=== PATIENT | male | born 1955 | race Caucasian/White ===

== ENCOUNTER 2018-04-09 16:46 | Outpatient (CLI) | payer MEDICAID, SELFPAY ==
[2018-04-09 17:54] LABS: HCT 36.2 % (40.0-50.0); HGB 13.1 g/dL (13.5-17.5); Mean Corp. HGB Concentration 36.2 g/dL (32.0-36.0); Mean Corpuscular Hemoglobin 31.2 pg (27.0-33.0); Mean Corpuscular Volume 86.2 fL (80-95); Mean Platelet Volume 10.6 fL (8.0-11.0); Platelet Count 211 x1000/uL (130-400); RBC Distribution Width 12.6 % (11.8-14.1); White Blood Cell Count 13.85 k/cumm (4.4-10.8)
[2018-04-09 18:34] LABS: ALT 28 U/L (12-78); AST 28 U/L (15-37); Albumin 3.7 g/dL (3.4-5.0); Alkaline Phosphatase 105 U/L (46-116); Anion Gap 11.1 mmol/L (3-11); BUN 32 mg/dL (7-18); Bilirubin, Total 0.6 mg/dL (0.2-1.0); CO2 26.9 mmol/L (21.0-32.0); CREATININE 1.45 mg/dL (0.70-1.30); Calcium 8.8 mg/dL (8.5-10.1); Chloride 101 mmol/L (98-107); Estimated GFR 49.31 (mL/min/1.73m2); Glucose 77 mg/dL (70-100); Sodium 139 mmol/L (136-145); Total Protein 7.2 g/dL (6.4-8.2)
== END 2018-04-09 17:06 ==
PROVIDERS: PCP Internal Medicine; Visit Provider Internal Medicine
DX: K74.60 Unspecified cirrhosis of liver (principal); G89.29 Other chronic pain; I10 Essential (primary) hypertension
CPT/HCPCS: 36415; 80053; 85027

== ENCOUNTER 2018-07-11 16:00 | Outpatient (REF) | payer MEDICAID, SELFPAY ==
[2018-07-15 01:43] LABS: Buprenorphine 5.8 ng/mL
[2018-07-22 09:19] LABS: Codeine 171 ng/mL (Cutoff: 25); Dihydrocodeine Negative ng/mL (Cutoff: 25); Hydrocodone Negative ng/mL (Cutoff: 25); Hydromorphone 33 ng/mL (Cutoff: 25); Morphine 11955 ng/mL (Cutoff: 25); Naloxone Negative ng/mL (Cutoff: 25); Norhydrocodone Negative ng/mL (Cutoff: 25); Noroxycodone Negative ng/mL (Cutoff: 25); Noroxymorphone Negative ng/mL (Cutoff: 25); Opiates Interpretation Positive.
== END 2018-07-11 16:20 ==
LOC: NCHCN 16:00
PROVIDERS: PCP Internal Medicine; Visit Provider Nurse Practitioner Family
DX: F11.10 Opioid abuse, uncomplicated (principal)
CPT/HCPCS: 80307; 80361

== ENCOUNTER 2018-08-23 13:06 | Outpatient (REF) | payer MEDICAID, SELFPAY ==
[2018-08-23 21:17] LABS: *AMPHETAMINES SCREEN URINE Negative (Negative); *BARBITURATES SCREEN URINE Negative (Negative); *BENZODIAZEPINES SCREEN URINE Negative (Negative); Cannabinoids THC POSITIVE (Negative); Cocaine Screen,Urine POSITIVE (Negative); METHADONE URINE SCREEN Negative (Negative); OPIATES URINE SCREEN POSITIVE (Negative)
[2018-08-23 22:00] LABS: Tricyclic Antidepressants Negative (Negative)
== END 2018-08-23 13:26 ==
LOC: NCHCN 13:06
PROVIDERS: PCP Internal Medicine; Visit Provider Internal Medicine
DX: F11.10 Opioid abuse, uncomplicated (principal)
CPT/HCPCS: 80307

== ENCOUNTER 2019-01-09 09:16 | Emergency (ER) | payer SELFPAY ==
[2019-01-09] VITALS (18 sets, daily range): BP systolic 178–198; BP diastolic 78–100; PULSE 43–61; RESP 13–23; TEMP 36.7; O2SAT 98–100
[2019-01-09] MEDS: Aspirin 81 MG CHEW 324 MG CH (09:20)
--- NOTE | 2019-01-09 09:27 | W.ED.GENAD ---
Discharge Plan Disposition Patient Disposition: AGAINST MEDICAL ADVICE Condition: Stable Discharge Details Chief Complaint: Chest Pain Clinical Impression: Chest pain Primary Care Provider: Burt Nguyen ED Provider: Rodriguez Warren Home Meds and New Rx's Prescriptions: Continued Spiriva with HandiHaler 18 MCG capsule, w/inhalation device 1 ea Inhalation PRN PRNRF: 0 carvedilol 12.5 mg Tablet 12.5 mg PO BID RF: 0 spironolactone 50 mg Tablet 50 mg PO QAM RF: 0 buprenorphine-naloxone [Suboxone] 2-0.5 mg Film 1 film BUCCAL BID RF: 0 ibuprofen 600 MG tablet 600 mg PO DAILY Qty: 20 RF: 0 Discharge Instructions Additional Instructions: follow up with your primary care provider within one week if you change your mind and are willing to have additional labs and ekg you can always return and if your pain worsens or you have worsening shortness of breath return to the emergency department Medical Decision Making 63 yo male with hx of htn, opiate abuse who uses IV heroin last use was a week ago per patient who comes in with chest pain radiating to the back since yesterday at 11am. States the pain is radiating to the back and abdomen and has never had this happen before. he has pain when I push on the anterior chest with clear lungs, soft non distended abodmen. his heart score is 3, will send troponin. His story is concerning for dissection so feel he should have a stat CTA to eval for this. He has no significant hypoxia or evidence of DVT on exam so doubt PE pt remains stable only has pain when I push on the chest. HIs CTA is negative on my read and per Dr. vale no acute findings. Initial labs reassuring. I strongly recommended that the patient stay for repeat troponin and ecg but he declined and wants to leave. He has the capacity to make his own decisions and is not under the influence of any drugs or alcohool. he understands risks of leaving including and disability and is willing to take these risks. He understands he can return at any time if he cahnges his mind and will f/u with pcp. Differential Diagnosis acs, dissection, pe Medical Records Medical records reviewed: Yes I reviewed the patient's medical records. Imaging Data Radiologic Study: Attestation: I personally reviewed and interpreted this imaging study as follows: Imaging: CT Scan Radiologist's impression: he aorta is well opacified with IV contrast. There is no evidence of aortic dissection or aneurysm. Atherosclerotic changes are seen in the abdominal aorta and iliac arteries. There is mild luminal narrowing. The celiac, SMA and CELINE appear patent. The renal arteries are also patent. No pleural or pericardial effusions are seen. There is left upper lobe scarring as well as mild underlying emphysematous changes bilaterally. The liver again has a cirrhotic appearance. The patent appears to be status post cholecystectomy. The spleen is absent. The pancreas and adrenals are unremarkable. The kidneys show symmetric perfusion. The prostate is slightly enlarged, The bladder is unremarkable. No bowel dilatation or wall thickening is seen. There is no ascites, free air or free fluid. Scoliosis is noted in the thoracolumbar spine. There is no evidence of fracture. IMPRESSION: No evidence of aortic dissection or other acute abnormality. There is left apical scarring as well as underlying emphysematous changes. Lab Data Lab results reviewed: Yes I reviewed the patient's lab results. ECG Data Attestation: I personally reviewed and interpreted this ECG (s) as follows: Prior ECG tracings: available for review Interpretation: sinus rhythm, rate of 60, pr 172, qtc 442, no acute st t wave ischmemic changes compared to ekg from 08/2016 [facility] General Mode of arrival: ambulatory. Date/Time Provider Initiated Documentation: 01/09/19 09:16. Limitations to Documentation: no limitations. Information obtained by: patient. History of Present Illness 63 year old M presents to the emergency department with the chief complaint of chest pain, described as moderate, Quality is described as aching, and is localized to the chest. Patient reports no radiation. Patient started experiencing this day(s) (1) and it has been constant. No relieving factors improve symptom(s), No exacerbating factors reported . Patient notes no other symptoms.. Patient did receive the following treatments prior to arrival, none Related Data Home Medications Medication Instructions Recorded Confirmed Spiriva with HandiHaler 1 ea INHALATION PRN PRN 01/21/14 01/09/19 ibuprofen 600 mg PO DAILY #20 tab 10/09/17 01/09/19 buprenorphine-naloxone [Suboxone] 1 film BUCCAL BID 01/09/19 01/09/19 carvedilol 12.5 mg PO BID 01/09/19 01/09/19 spironolactone 50 mg PO QAM 01/09/19 01/09/19 Previous Rx's Medication Instructions Recorded ibuprofen 600 mg PO DAILY #20 tab 10/09/17 Allergies Allergy/AdvReac Type Severity Reaction Status Date / Time methadone [Methadone] Allergy Intermediate Rash/Swelli Unverified 01/09/19 10:00 ng/Edema Review of Systems Review of Systems All systems reviewed & are unremarkable except as noted in HPI and below Constitutional Denies chills, Denies fever(s) and Denies weakness Gastrointestinal Denies abdominal pain, Denies nausea and Denies vomiting Musculoskeletal Denies joint swelling Neurologic Denies weakness Psychiatric Denies depression PFSH Social History Smoking/Tobacco Use Status: Current every day Tobacco Type: cigarettes Smoking cigarettes per day: 10 Alcohol Intake: current Alcohol Intake frequency: a few times a month Alcohol type: beer Drug use: Occasionally Substance use type: marijuana, crack/cocaine and heroin Do you feel safe at home: Yes Do you feel safe in your relationship?: Yes Exam Const General: no acute distress Orientation: alert HENMT Head: normal to inspection Ears: external ears normal General nose exam: external nose normal Mouth: moist mucous membranes Eyes General: appearance normal, both eyes and all related structures Neck Neck: normal visual inspection Resp Effort & Inspection: normal respiratory effort and able to speak in complete sentences Cardio Rate: regular rate Skin General skin exam: no rashes or lesions noted Neuro General: alert and oriented x3 Extrem General: normal to inspection Psych Mental Status: mental status grossly normal
[2019-01-09 09:47] LABS: Abs Immature Grans 0.03 k/cumm (0.0-0.09); Absolute Basophil Count 0.02 k/cumm (0.0-0.2); Absolute Eosinophil Count 0.06 k/cumm (0.0-0.7); Absolute Lymphocyte Count 1.84 k/cumm (1.2-3.4); Absolute Monocyte Count 1.06 k/cumm (0.11-0.7); Absolute Neutrophil Count 5.63 k/cumm (1.2-6.7); Basophils % 0.2; Eosinophils % 0.7; HCT 37.9 % (40.0-50.0); HGB 13.9 g/dL (13.5-17.5); Immature Grans % 0.3; Lymphocytes % 21.3; Mean Corp. HGB Concentration 36.7 g/dL (32.0-36.0); Mean Corpuscular Volume 87.1 fL (80-95); Mean Platelet Volume 9.8 fL (8.0-11.0); Monocytes % 12.3; Neutrophils % 65.2; Platelet Count 292 x1000/uL (130-400); RBC 4.35 m/cumm (4.50-6.00); RBC Distribution Width 12.4 % (11.8-14.1); White Blood Cell Count 8.64 k/cumm (4.4-10.8)
[2019-01-09 10:05] LABS: ALT 30 U/L (16-63); AST 28 U/L (15-37); Albumin 3.9 g/dL (3.4-5.0); Alkaline Phosphatase 96 U/L (46-116); Anion Gap 9.7 mmol/L (3-11); BUN 13 mg/dL (7-18); Bilirubin, Total 0.9 mg/dL (0.2-1.0); CO2 28.3 mmol/L (21.0-32.0); CREATININE 1.11 mg/dL (0.70-1.30); Chloride 106 mmol/L (98-107); Glucose 122 mg/dL (70-100); Lipase 200 U/L (73-393); Magnesium 1.8 mg/dL (1.8-2.4); Potassium 4.1 mmol/L (3.5-5.1); Sodium 144 mmol/L (136-145)
[2019-01-09] MEDS: Normal Saline Flush 10 ML SYR IVP ×2 (10:05→11:47)
[2019-01-09 10:08] LABS: INR 1.1 (0.9-1.1); PTT Activated 26.1 sec (21.0-31.4); Prothrombin Time 10.6 sec (9.3-11.0); Troponin I < 0.05 ng/mL (0.00-0.06)
[2019-01-09] MEDS: Omnipaque 350 MG/ML 100 ML BTL IJ (10:38)
--- NOTE | 2019-01-09 10:40 | DI.CT_ITS ---
SYMPTOMS/DIAGNOSIS: CHEST PAIN RADIATING TO BACK/ABDOMEN CT ANGIOGRAPHY OF THE CHEST, ABDOMEN AND PELVIS: CT angiography was performed with multi slice acquisition and multi planar and 3D reconstruction. The aorta is well opacified with IV contrast. There is no evidence of aortic dissection or aneurysm. Atherosclerotic changes are seen in the abdominal aorta and iliac arteries. There is mild luminal narrowing. The celiac, SMA and CELINE appear patent. The renal arteries are also patent. No pleural or pericardial effusions are seen. There is left upper lobe scarring as well as mild underlying emphysematous changes bilaterally. The liver again has a cirrhotic appearance. The patent appears to be status post cholecystectomy. The spleen is absent. The pancreas and adrenals are unremarkable. The kidneys show symmetric perfusion. The prostate is slightly enlarged, The bladder is unremarkable. No bowel dilatation or wall thickening is seen. There is no ascites, free air or free fluid. Scoliosis is noted in the thoracolumbar spine. There is no evidence of fracture. IMPRESSION: No evidence of aortic dissection or other acute abnormality. There is left apical scarring as well as underlying emphysematous changes.
[2019-01-09] MEDS: Ketorolac 15 MG/ML VIAL IVP (11:47)
== END 2019-01-09 12:03 | disposition left against medical advice (07) ==
PROVIDERS: Emergency Provider Emergency Medicine; PCP Internal Medicine
DX: R07.9 Chest pain, unspecified (principal); F11.10 Opioid abuse, uncomplicated; I10 Essential (primary) hypertension; Z53.29 Procedure and treatment not carried out because of patient's decision for other reasons
CPT/HCPCS: 36415; 74177; 80053; 83690; 93005; 99285; 83735; 84484; 85025; 85610; 85730; 93010; 99284; J1885; J3490

== ENCOUNTER 2019-04-26 11:37 | Emergency (ER) | payer MEDICAID, SELFPAY ==
[2019-04-26 11:42] VITALS: BP 177/113; PULSE 74; RESP 16; TEMP 36.8; O2SAT 99
--- NOTE | 2019-04-26 11:50 | DI.RAD_ITS ---
EXAM: XR CHEST 2V PA LATERAL CLINICAL HISTORY: cough TECHNIQUE: COMPARISON: CHEST 2 VIEWS PA,LAT from 05/10/2016 CHEST 2 VIEWS PA,LAT from 10/09/2017 FINDINGS: The heart is not enlarged. Left upper lobe scarring again noted, no gross change appearance comparis on examination October 25. Lungs otherwise appear clear. No pleural effusion. IMPRESSION: No evidence of acute intrapulmonary process.
--- NOTE | 2019-04-26 11:57 | ED.GENADUL_ITS ---
Discharge Plan Discharge Details Chief Complaint: RespSymp Primary Care Provider: Burt Nguyen ED Provider: Venu Toure Home Meds and New Rx's Prescriptions: No Action Spiriva with HandiHaler 18 MCG capsule, w/inhalation device 1 ea Inhalation PRN PRNRF: 0 carvedilol 12.5 mg Tablet 12.5 mg PO BID RF: 0 spironolactone 50 mg Tablet 50 mg PO QAM RF: 0 buprenorphine-naloxone [Suboxone] 2-0.5 mg Film 1 film BUCCAL BID RF: 0 ibuprofen 600 MG tablet 600 mg PO DAILY Qty: 20 RF: 0 Medical Decision Making 63-year-old male with clinical signs of atypical pneumonia chest x-ray question of a mild left upper lobe infiltrate consistent with lung exam patient some risk factors for tuberculosis age and chronicity of complaint lead me to recommend ECG basic lab work and TB screening patient says he has a long drive ahead of him today and cannot wait for any further testing just wanted to be assessed for a chest x-ray. Explained importance of early follow-up and the risks and benefits and chance of missed diagnosis morbidity and mortality of not completi ng his ED work-up today. Patient understands but refused and prefers discharge at this time but will return anytime should his condition worsen or if he changes his mind. While more expeditious today in the emergency department I think his work-up is also appropriate on an outpatient basis 12:04 PM radiology reading left lower lobe findings as chronic scarring similar to previous however with symptoms and lung exam will still cover with azithromycin for presumed pneumonia patient to follow-up with primary care this week for further work-up as discussed above. HPI 63-year-old male past medical history COPD, hypertension IV drug abuse last use 8 months ago previously on Suboxone but now abstinent, daily smoker x30 years presents with approximately 3 weeks cough intermittent fever chills malaise. No chest pain no nausea vomiting diarrhea loss of consciousness. Cough and congestion are constant worse in the morning occasionally the cough is pro ductive clearing green sputum no known sick contacts no recent incarceration. Patient last TB test 3 years ago was negative. No abdominal pain. General Date/Time Provider Initiated Documentation: 04/26/19 11:46 . Related Data Home Medications Medication Instructions Recorded Confirmed Spiriva with HandiHaler 1 ea INHALATION PRN PRN 01/21/14 04/26/19 ibuprofen 600 mg PO DAILY #20 tab 10/09/17 04/26/19 buprenorphine-naloxone [Suboxone] 1 film BUCCAL BID 01/09/19 01/09/19 carvedilol 12.5 mg PO BID 01/09/19 04/26/19 spironolactone 50 mg PO QAM 01/09/19 01/09/19 Previous Rx's Medication Instructions Recorded ibuprofen 600 mg PO DAILY #20 tab 10/09/17 Allergies Allergy/AdvReac Type Severity Reaction Status Date / Time methadone [Methadone] Allergy Intermediate Rash/Swelli Unverified 04/26/19 11:45 ng/Edema General Stated Complaint: RespSymp HEATHER: 4 Review of Systems All systems reviewed & are unremarkable except as noted in HPI and below PFSH Social History Smoking/Tobacco Use Status: Current every day Tobacco Type: cigarettes Alcohol Intake: current Alcohol Intake frequency: a few times a month Alcohol type: beer Drug use: Occasionally Substance use type: marijuana, crack/cocaine and heroin Do you feel safe at home: Yes Do you feel safe in your relationship?: Yes Exam Narrative Exam Narrative: Pulse oximetry reviewed by me and is normal [] Constitutional: Pt is in no acute distress. pt is well appearing. oriented to person, place, and time. Eyes: conjunctivae are normal. Pupils are equal, round, and reactive to light. No scleral icterus. extraocular muscles are intact Ears/Nose/Mouth/Throat: mucus membranes are moist. Musculoskeletal: neck is supple. normal range of motion in all extremities. Cardiovascular: Normal rate and rhythm. No lower extremity edema [] Respiratory: effort is normal . pt exhibits no stridor or respiratory distress. Lungs clear bilaterally except mild upper airway rhonchi and some rales in the left upper lobe [] GastrointestinaI: abdomen soft, +BS, nontender, -rebound, -guarding. Neurological: alert and oriented to person, place, and time. he has normal strength, no tremor. Skin: Skin is warm and dry. he is not diaphoretic. Distal perfusion in tact, warm extremities, cap refill ? 2 seconds. Hem/Lymph/Imm: No cervical LAD, no goiter, no conjunctival pallor Psych: normal mood and affect. behavior is normal Triage and nurse notes reviewed.[] Course Vital Signs Vital signs: Vital Signs Temperature 36.8 C 04/26/19 11:42 Pulse 74 04/26/19 11:42 Respiratory Rate 16 04/26/19 11:42 Blood Pressure 177/113 H 04/26/19 11:42 Pulse Oximetry 99 04/26/19 11:42 Temperature 36.8 C 04/26/19 11:42 Temperature Source Temporal Artery Scan 04/26/19 11:42 Pulse 74 04/26/19 11:42 Respiratory Rate 16 04/26/19 11:42 Respiratory Effort Non-Labored 04/26/19 11:44 Respiratory Depth Normal 04/26/19 11:44 Blood Pressure 177/113 H 04/26/19 11:42 Blood Pressure Position Sitting 04/26/19 11:42 Pulse Oximetry 99 04/26/19 11:42 Oxygen Delivery Method Room Air 04/26/19 11:42 Oxygen Flow Rate 0 04/26/19 11:42 Pain Level 0 04/26/19 11:42
== END 2019-04-26 12:24 | disposition home or self-care (01) ==
LOC: ER 12:23
PROVIDERS: Emergency Provider Emergency Medicine; PCP Internal Medicine
DX: J44.0 Chronic obstructive pulmonary disease with (acute) lower respiratory infection (principal); J18.9 Pneumonia, unspecified organism; F17.210 Nicotine dependence, cigarettes, uncomplicated; I10 Essential (primary) hypertension; Z53.29 Procedure and treatment not carried out because of patient's decision for other reasons
CPT/HCPCS: 99283; 71046; 99284

== ENCOUNTER 2019-08-25 10:19 | Emergency (ER) | payer MEDICAID, SELFPAY ==
[2019-08-25 10:20] VITALS: BP 125/63; PULSE 75; RESP 16; TEMP 36.6; O2SAT 100
--- NOTE | 2019-08-25 10:28 | ED.GENADUL_ITS ---
Discharge Plan Disposition Patient Disposition: AGAINST MEDICAL ADVICE Condition: Fair Discharge Details Chief Complaint: AMS/LOC Clinical Impression: Opiate overdose Primary Care Provider: Burt Nguyen ED Provider: Nanci Levine Home Meds and New Rx's Prescriptions: No Action Spiriva with HandiHaler 18 MCG capsule, w/inhalation device 1 ea Inhalation PRN PRNRF: 0 carvedilol 12.5 mg Tablet 12.5 mg PO BID RF: 0 spironolactone 50 mg Tablet 50 mg PO QAM RF: 0 azithromycin 250 mg tablet See Rx Instructions .ROUTE .COMPLEX Qty: 6 RF: 0 ibuprofen 600 MG tablet 600 mg PO DAILY Qty: 20 RF: 0 Discharge Instructions Instructions: Adult Overdose (ED), Opioid Use Disorder (ED) Additional Instructions: Follow up with primary care provider in 3-5 days. Return to ED sooner if any worsening or concerns. Increase oral fluids. Patient requesting to leave AMA. The patient appears clinically sober and is not under the influence of any known substances. Discussed risks and benefits with patient. Patient verbalizes understanding of situation and the risks of leaving.Discussed results of labs and imaging, if they were performed and recommendations for further treatment and/or observation. The patient verbalizes understanding of the results discussed. Every effort was made to involve family if appropriate and situation discussed. At this time patient has opted to leave against medical advice. Patient is alert and oriented and has the capacity to make own decisions. Medical Decision Making 1020: Patient presents to the ED via POV unresponsive after injecting heroin to his hand. He is agonal he breathing with a rate of 5 a minute. O2 sat is 67% on room air. Patient was brought into the ED placed on a monitor BGL 116, placed on a nonrebreather sat brought up to 94%. Normal sinus rhythm no ectopy no ST elevation noted. 1028: After a total of 8 mg of Narcan nasally patient is awake alert x3. He is requesting to leave. Discussed risks and benefits discussed that if the Narcan wears off he will stop breathing again patient understands the risks and verbalizes understanding. He is able to answer questions on name date patient is refusing any additional IV starts. Patient will leave AMA. Patient ambulated out of the department with steady gait unassisted. Patient requesting to leave AMA. The patient appears clinically sober and is not under the influence of any known substances. Discussed risks and benefits with patient. Patient verbalizes understanding of situation and the risks of leaving.Discussed results of labs and imaging, if they were performed and recommendations for further treatment and/or observation. The patient verbalizes understanding of the results discussed. Every effort was made to involve family if appropriate and situation discussed. At this time patient has opted to leave against medical advice. Patient is alert and oriented and has the capacity to make own decisions. HPI General Mode of arrival: wheelchair (stretcher) . Date/Time Provider Initiated Documentation: 08/25/19 10:22 . Limitations to Documentation: altered mental status . Information obtained by: family (friends) . HPI Narrative: 64-year-old male presents via POV front of the ER with a plaint of unresponsive heroin overdose. Friends state that he shot up in his left hand became unresponsive. Patient remained approximately 5 breaths/min pale unresponsive, pinpoint pupils. Does have a fresh track nascimento noted to the dorsum of his left hand. Patient brought into the department on a stretcher, was given 4 mg Narcan nasally outside. And another dose 4 mg in the ED. Patient initially was O2 sat of 67% room air. Related Data Home Medications Medication Instructions Recorded Confirmed Spiriva with HandiHaler 1 ea INHALATION PRN PRN 01/21/14 04/26/19 ibuprofen 600 mg PO DAILY #20 tab 10/09/17 04/26/19 carvedilol 12.5 mg PO BID 01/09/19 04/26/19 spironolactone 50 mg PO QAM 01/09/19 01/09/19 azithromycin See Rx Instructions .ROUTE 04/26/19 .COMPLEX #6 tab Previous Rx's Medication Instructions Recorded ibuprofen 600 mg PO DAILY #20 tab 10/09/17 azithromycin See Rx Instructions .ROUTE 04/26/19 .COMPLEX #6 tab Allergies Allergy/AdvReac Type Severity Reaction Status Date / Time methadone [Methadone] Allergy Intermediate Rash/Swelli Unverified 04/26/19 11:45 ng/Edema General Stated Complaint: AMS/LOC HEATHER: 2 Review of Systems Unobtainable due to mental status [facility] Social History Smoking/Tobacco Use Status: Current every day Tobacco Type: cigarettes Alcohol Intake: current Alcohol Intake frequency: a few times a month Alcohol type: beer Drug use: Occasionally Substance use type: marijuana, crack/cocaine and heroin Do you feel safe at home: Yes Do you feel safe in your relationship?: Yes Exam Const General: intoxicated appearing Nutritional Appearance: average body habitus Orientation: obtunded Limitations: altered mental status Other: Pinpoint pupils agonal breathing 5 times a minute. Resp Effort & Inspection: decreased respiratory effort Cardio Rate: regular rate Heart Sounds: S1 normal and S2 normal Skin General skin exam: no rashes or lesions noted and pallor Trauma: no lacerations or abrasions Neuro General: patient obtunded Cognition: abnormal cognition Gait: other (Steady gait without assistance upon discharge.) Psych Thought Content: no homicidality and suicidality Insight: poor Judgment: poor Course Vital Signs Vital signs: Vital Signs Temperature 36.6 C 08/25/19 10:20 Pulse 75 08/25/19 10:20 Respiratory Rate 16 08/25/19 10:20 Blood Pressure 125/63 08/25/19 10:20 Pulse Oximetry 100 08/25/19 10:20 Temperature 36.6 C 08/25/19 10:20 Temperature Source Tympanic 08/25/19 10:20 Pulse 75 08/25/19 10:20 Respiratory Rate 16 08/25/19 10:20 Respiratory Effort 08/25/19 10:22 Blood Pressure 125/63 08/25/19 10:20 Blood Pressure Position Sitting 08/25/19 10:20 Pulse Oximetry 100 08/25/19 10:20 Oxygen Delivery Method Nasal Cannula 08/25/19 10:20 Pain Level 0 08/25/19 10:20
--- NOTE | 2019-08-25 10:36 | NUR.NOTE ---
Nursing Note: Unable to perform assessment. PT unwilling to cooperated with hospital staff. PT refused medical treatment once alert and oriented. PT left AMA, MD Ford at bedside during AMA discussion.
--- NOTE | 2019-08-25 10:38 | NUR.NOTE ---
Nursing Note: PT dropped off at ED entrance by friend. Friend reports the patient suddenly became unresponsive after using heroin. Upon arrival Pt was supine on the sidewalk unresponsive. 4mg Narcan sprayed intranasal. PT lifted to stretched and transported to ED RM 2. PT placed on heart monitor to obtain vitals. Vitals stable. IV access attempted three times, all unsuccessful. BGL 113. Second 4mg Narcan intranasal administered. Shortly after administration, PT became arousable and at 10:30 was alert and oriented times 3. Once alert Pt became uncooperative and refused all treatment and interventions. PT warned of the risks involved with refusing medical care after a drug overdose. PT informed that the Narcan may wear off and he could become unconscious. PT warned of possible associated with refusing medical care after drug over dose. MD Ford at bedside enplaning risks involved to Pt prior to his departure from the ED. PT left AMA, unwilling to wait for appropriate transportation.
== END 2019-08-25 10:33 | disposition left against medical advice (07) ==
LOC: ER 10:53
PROVIDERS: Emergency Provider Registered Nurse Emergency; PCP Internal Medicine
DX: T40.1X1A Poisoning by heroin, accidental (unintentional), initial encounter (principal); Z53.29 Procedure and treatment not carried out because of patient's decision for other reasons
CPT/HCPCS: 36416; 80053; 82962; 99283; 83735; 84484; 85025

== ENCOUNTER 2019-11-01 06:10 | Emergency (ER) | payer MEDICAID, SELFPAY ==
[2019-11-01] VITALS (25 sets, daily range): BP systolic 133–176; BP diastolic 78–93; PULSE 54–76; RESP 10–25; TEMP 36.5–36.8; O2SAT 95–100
--- NOTE | 2019-11-01 06:27 | ED.GENADUL_ITS ---
Discharge Plan Disposition Patient Disposition: HOME Condition: Stable Discharge Details Chief Complaint: Chest Pain Clinical Impression: COPD exacerbation Primary Care Provider: Burt Nguyen ED Provider: Rich Sandra Home Meds and New Rx's Prescriptions: New prednisone 50 MG tablet 50 mg PO DAILY Qty: 5 RF: 0 albuterol sulfate 90 mcg/actuation HFA aerosol inhaler 2 puff IH Q6H PRNQty: 6.7 RF: 0 Continued Spiriva with HandiHaler 18 MCG capsule, w/inhalation device 1 ea Inhalation PRN PRNRF: 0 carvedilol 12.5 mg Tablet 12.5 mg PO BID RF: 0 spironolactone 50 mg Tablet 50 mg PO QAM RF: 0 azithromycin 250 mg tablet See Rx Instructions .ROUTE .COMPLEX Qty: 6 RF: 0 ibuprofen 600 MG tablet 600 mg PO DAILY PRNRF: 0 Discharge Instructions Instructions: COPD (Chronic Obstructive Pulmonary Disease) (ED) Additional Instructions: It is not my recommendation that you leave without the labs that we did order. In the meantime please take the prednisone steroid as directed. Please take 2 puffs every 4-6 hours of your albuterol inhaler with your spacer. If you notice any worsening of your symptoms, or any new symptoms such as vomiting, diarrhea, fever, chills, shortness of breath, chest pain, numbness, weakness, or fainting , please return immediately to the emergency department for reevaluation. Please follow up with your primary care provider as soon as possible for reassessment and reevaluation. As always, it was a pleasure participating in your medical care today. Referrals: Burt Nguyen MD [Primary Care Provider] - Medical Decision Making <Fernando Alicea MD - Last Filed: 11/01/19 07:46> Medical Records Medical records reviewed: Yes I reviewed the patient's medical records. 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 Symptoms worse over the last couple of days. No fever. No travel or exposure to COVID. Does not have rescue inhaler at home. Do not suspect COVID given his timeline. Suspect COPD exacerbation triggered by paint fumes. His EKG is normal. Will place IV and check labs including troponin. Chest x-ray ordered. Will place in negative pressure room and give DuoNeb treatment to see if it helps his symptoms. 07:45 -patient former IV drug abuser. Normal axis in his arms. Nursing able to get EJ. CBC looks stable. Other labs not run due to QA issues by lab. Chest x-ray read by radiology as stable. Patient refusing to let anyone redraw his labs. Will give DuoNeb and reevaluate. Patient to be signed over to oncoming physician Dr. Sandra. ECG Data Attestation: I personally reviewed and interpreted this ECG (s) as follows: Prior ECG tracings: not available for review Interpretation: Sinus rhythm at 72. Normal axis and intervals. Normal ST segments. <Rich Sandra, DO - Last Filed: 11/01/19 09:20> Patient was signed out to my self by my colleague Dr. Fernando Alicea, please see his HPI, physical exam and assessment. At time of signout patient had refused additional lab draws for requested labs. EKG was unremarkable. Chest x-ray is unremarkable. The patient was given a breathing treatment which he had complete resolution of his symptoms from. After prolonged discussion with both Dr. Alicea myself, the patient it very clear that he like to leave, does not feel he needs any additional blood work, feels fine. The patient is able to speak clearly. There is no demonstration of any slurring of speech. There is evidence of clear decision making capacity. Patient is able to ambulate well without any difficulty. There are no signs of ataxia or stumbling motions. Patient is of a appropriate age to make decisions. The patient is of sound mind, appears clinically sober, and has capacity to make decisions by my clinical exam. We have provided options for treatment and discussed the risks and benefits of these options and refusing these options, including and disability specific to the patient's pathology. Patient is able to discuss the risks and benefits and alternatives of treatment and refusing treatment. We have tried to involve the patient's family or support group that was present here or by contacting them on the phone. The patient chooses to leave before evaluation and treatment is complete AGAINST MEDICAL ADVICE. I will give the patient an albuterol inhaler and a spacer to go home with, in addition to a 5-day course of steroid. Reassessment upon time of discharge the patient is notably unremarkable I have extensively reviewed the treatment plan and discharge instructions with the patient. I have addressed all patient concerns at this time. The patient was made aware of what symptoms to monitor for that would warrant a return to the emergency department. Discussed the plan with the patient, they demonstrate verbal understanding and agreement with our assessment and plan at this time. HPI <Fernando Alicea MD - Last Filed: 11/01/19 07:46> General Mode of arrival: ambulatory . Date/Time Provider Initiated Documentation: 11/01/19 06:26 . Limitations to Documentation: no limitations . Information obtained by: patient, RN notes reviewed and old records reviewed . HPI Narrative: Patient presents to the ED with complaint of substernal discomfort, mild shortness of breath, mild cough. 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 They do not have mask/respirators TMs. That actually all needed to stop current effusions. He has had symptoms for 2 days since then. He does have a history of COPD. He does not have a rescue inhaler only his Spiriva. He has a little bit of a sore throat but denies fever, headache. He has no nausea or vomiting or other GI symptoms. Denies any leg pain or leg swelling. Pain is not pleuritic. It has been getting worse over time prompting him to come in this morning. Related Data Home Medications Medication Instructions Recorded Confirmed Spiriva with HandiHaler 1 ea INHALATION PRN PRN 01/21/14 11/01/19 carvedilol 12.5 mg PO BID 01/09/19 11/01/19 spironolactone 50 mg PO QAM 01/09/19 11/01/19 azithromycin See Rx Instructions .ROUTE 04/26/19 .COMPLEX #6 tab albuterol sulfate 2 puff IH Q6H PRN #6.7 gm 11/01/19 ibuprofen 600 mg PO DAILY PRN 11/01/19 11/01/19 prednisone 50 mg PO DAILY #5 tab 11/01/19 Previous Rx's Medication Instructions Recorded azithromycin See Rx Instructions .ROUTE 04/26/19 .COMPLEX #6 tab albuterol sulfate 2 puff IH Q6H PRN #6.7 gm 11/01/19 prednisone 50 mg PO DAILY #5 tab 11/01/19 Allergies Allergy/AdvReac Type Severity Reaction Status Date / Time methadone [Methadone] Allergy Intermediate Rash/Swelli Unverified 06/26/20 06:21 ng/Edema General Stated Complaint: Chest Pain HEATHER: 3 Review of Systems <Fernando Alicea MD - Last Filed: 11/01/19 07:46> Narrative: As documented in HPI otherwise negative as below. Const: no fever, chills, weakness Resp: no pleuritic pain CV: no diaphoresis, edema, syncope GI: no abdominal pain, nausea, vomiting, diarrhea Neuro: no headache, numbness, focal weakness, confusion PFSH <Fernando Alicea MD - Last Filed: 11/01/19 07:46> Medical History (Updated 11/01/19 @ 09:08 by Rich Sandra DO) COPD (chronic obstructive pulmonary disease) (Chronic) Hepatitis C (Chronic) treated with interferon as a child; states it is now resolved Hypertension (Chronic) Surgical History History of appendectomy (Chronic) History of cholecystectomy (Chronic) History of splenectomy (Acute) Social History Smoking/Tobacco Use Status: Current every day Tobacco Type: cigarettes Alcohol Intake: current Alcohol Intake frequency: a few times a month Alcohol type: beer Drug use: Occasionally Substance use type: marijuana Details: no longer uses heroin or cocaine (months) Do you feel safe at home: Yes Do you feel safe in your relationship?: Yes Exam <Fernando Alicea MD - Last Filed: 11/01/19 07:46> Narrative Exam Narrative: Vitals: Afebrile. Hypertensive. Otherwise normal vitals and normal room air pulse ox. Const: WDWN male in NAD. HEENT: NC/AT. Normal facial exam. Mild posterior oropharyngeal erythema. Eyes: Normal conjunctiva and sclera. Neck: Supple. Trachea midline. Lungs: Normal respiratory effort. Lungs are clear. No chest wall tenderness Cor: RRR without murmur/gallop. Good radial pulses. GI: Soft. NT/ND. No guarding or rebound. Neuro: A+O x 3. Normal speech, mentation, gait. Cranial nerves II - XII grossly intact. No gross motor or sensory deficit. Ext: No C/C/E. No calf tenderness Skin: Warm and dry without rash. Course <Fernando Alicea MD - Last Filed: 11/01/19 07:46> Vital Signs Vital signs: Vital Signs Temperature 97.7 F 11/01/19 06:15 Pulse 73 11/01/19 06:15 Respiratory Rate 16 11/01/19 06:15 Blood Pressure 173/85 H 11/01/19 06:15 Pulse Oximetry 98 11/01/19 06:15 Temperature 97.7 F 11/01/19 06:15 Temperature Source Skin 11/01/19 06:15 Pulse 73 11/01/19 06:15 Respiratory Rate 16 11/01/19 06:15 Respiratory Effort 11/01/19 06:21 Respiratory Depth Normal 11/01/19 06:21 Respiratory Pattern Normal 11/01/19 06:21 Blood Pressure 173/85 H 11/01/19 06:15 Pulse Oximetry 98 11/01/19 06:15 Pain Level 5 11/01/19 06:15 Sign Out <Fernando Alicea MD - Last Filed: 11/01/19 07:46> Sign Out Data: Sign Out Comment: Pending neb treatment and reevaluation. Refusing redraw on labs. Last updated by Fernando Alicea MD at 11/01/19 07:47
[2019-11-01 07:06] LABS: Abs Immature Grans 0.04 k/cumm (0.0-0.09); Absolute Basophil Count 0.09 k/cumm (0.0-0.2); Absolute Eosinophil Count 0.43 k/cumm (0.0-0.7); Absolute Lymphocyte Count 2.28 k/cumm (1.2-3.4); Absolute Monocyte Count 1.12 k/cumm (0.11-0.7); Absolute Neutrophil Count 4.16 k/cumm (1.2-6.7); Basophils % 1.1; Eosinophils % 5.3; HCT 35.3 % (40.0-50.0); HGB 12.7 g/dL (13.5-17.5); Immature Grans % 0.5 %; Lymphocytes % 28.1; Mean Corpuscular Hemoglobin 32.3 pg (27.0-33.0); Mean Corpuscular Volume 89.8 fL (80-95); Monocytes % 13.8; Neutrophils % 51.2; Platelet Count 243 x1000/uL (130-400); RBC 3.93 m/cumm (4.50-6.00); RBC Distribution Width 12.7 % (11.8-14.1); White Blood Cell Count 8.12 k/cumm (4.4-10.8)
--- NOTE | 2019-11-01 07:15 | DI.RAD_ITS ---
EXAM: XR CHEST 2V PA LATERAL CLINICAL HISTORY: CP/SOB TECHNIQUE: COMPARISON: CR CHEST 2 VIEWS PA,LAT from 09/02/2015 CR CHEST 2 VIEWS PA,LAT from 05/10/2016 CR CHEST 2 VIEWS PA,LAT from 10/09/2017 CR XR CHEST 2V PA LATERAL from 04/26/2019 FINDINGS: Heart is not enlarged. Lungs are predominantly clear with left upper lobe scarring unchanged from pr ior studies including October 2017. No pleural effusion seen. IMPRESSION: Apparent left upper lobe scarring. No evidence of acute change.
[2019-11-01] MEDS: Albuterol/Ipratropium 3 ML UPD VIAL UPD (07:38)
== END 2019-11-01 09:12 | disposition home or self-care (01) ==
PROVIDERS: Emergency Medicine; Emergency Provider Student in an Organized Health Care Education/Training Program; PCP Internal Medicine
DX: J44.1 Chronic obstructive pulmonary disease with (acute) exacerbation (principal); T65.6X1A Toxic effect of paints and dyes, not elsewhere classified, accidental (unintentional), initial encounter; Z53.29 Procedure and treatment not carried out because of patient's decision for other reasons; I10 Essential (primary) hypertension; F17.210 Nicotine dependence, cigarettes, uncomplicated
CPT/HCPCS: 80053; 93005; 94640; 99285; 36010; 71046; 83735; 84484; 85025; 85379; 93010; 99284; J7620

== ENCOUNTER 2020-02-26 15:30 | Emergency (ER) | payer MEDICAID, SELFPAY ==
[2020-02-26] VITALS (12 sets, daily range): BP systolic 132–165; BP diastolic 73–91; PULSE 71–90; RESP 14–27; TEMP 35.9–37.1; O2SAT 96–99
--- NOTE | 2020-02-26 15:45 | DI.CT_ITS ---
EXAM: CT HEAD CERVICAL SPINE WO CLINICAL HISTORY: Trauma. TECHNIQUE: Imaging Protocol: Axial computed tomography images with coronal and sagittal reformatted images were created and reviewed COMPARISON: CT CERVICAL SPINE WITHOUT CONTRA from 08/08/2015 FINDINGS: Head CT Ventricles and Extra axial spaces: Normal in size and morphology for the patient's age. Hemorrhage: None. Cerebral parenchyma: Normal. Midline shift: None. Brainstem/Cerebellum: Normal. Calvarium: Normal. Visualized Paranasal sinuses/Mastoids: Mucosal thickening the left maxillary and several ethmoid sinu ses. Clear mastoids. Orbits are unremarkable. Cervical Spine CT BONES: Vertebral body heights are maintained. Alignment is normal. There is no evidence of acute frac ture. Degenerative disc changes and facet degenerative changes are seen, causing bilateral neural foraminal narrowing. . SOFT TISSUES: No paraspinal hematoma. The airway appears intact. IMPRESSION: Head CT: No acute abnormality. C-spine CT: Degenerative changes, no acute abnormality. Incidental RADIATION DOSE DELIVERED: LINK-TO-SR Total DLP DATA REPOSITORY: All CT scans at this facility are submitted to the National Radiology Data Registry (NRDR) Dose Index Registry (DIR) with the [employer] (ACR). RADIATION OPTIMIZATION: All CT scans at this facility use at least one of these dose optimization te chniques: automated exposure control; mA and/or kV adjustment per patient size (includes targeted exa ms where dose is matched to clinical indication); or iterative reconstruction.
--- NOTE | 2020-02-26 16:21 | ED.GENADUL_ITS ---
Discharge Plan Disposition Patient Disposition: AGAINST MEDICAL ADVICE Condition: Fair Discharge Details Clinical Impression: Fracture of forearm, left, closed Primary Care Provider: Burt Nguyen ED Provider: Dana Manley Home Meds and New Rx's Prescriptions: Continued Spiriva with HandiHaler 18 MCG capsule, w/inhalation device 1 ea Inhalation PRN PRNRF: 0 carvedilol 12.5 mg Tablet 12.5 mg PO BID RF: 0 spironolactone 50 mg Tablet 50 mg PO QAM RF: 0 ibuprofen 600 MG tablet 600 mg PO DAILY PRNRF: 0 Discharge Instructions Instructions: Arm Fracture in Adults (ED) Additional Instructions: elevate arm above level of heart as much as possible ice to splint over area of fracture acetaminophen 1000 mg 3times daily can use oxycodone 5mg every 6 hours for severe breakthrough pain return immediately for signs or concerns of compartment syndrome including: Symptoms of acute compartment syndrome usually get worse quickly (over a few hours) and include: ?Pain that is much worse than expected for your injury ?A deep ache or burning pain that doesn't go away ?Numbness, tingling, or loss of feeling If it isn't treated right away, it can cause other symptoms. These include muscle weakness or being unable to move certain muscles. If you have the above symptoms, especially if you recently had an injury, return immediately to the ED as it needs to be treated as quickly as possible. nothing to eat or drink after midnight for surgical repair tomorrow. return here in the morning to Day Surgery, at 10 am as discussed. Referrals: Roman Francisco MD [ [facility] STAFF PHYSICIAN] - (patient to return in am for surgical repair) Medical Decision Making Medical Records Medical records reviewed: Yes I reviewed the patient's medical records. Medical records narrative: tetanus updated 2016 given acetaminophen 1000 mg po and toradol 30 mg IM. xray forearm and CT head and neck readings reviewed forearm: Acute transverse fracture of the mid left radius with 1 shaft width lateral and dorsal displacement CT of the head and cervical spine showed no acute intracranial abnormality, incidental noted chronic mild sinus sinusitis and carotid arthrosclerosis no acute fracture or traumatic malalignment or concerning cervical stenosis, diffuse cervical spondylosis with multilevel minor degenerative subluxations and bilateral neural foramen stenosis. Patient given morphine 4 mg IM for ongoing pain with good pain relief.. Case discussed with Dr. Francisco who reviewed films. Sugar tong splint applied. Good CSM T's distally after splint application. Pain is well managed. Discuss ed observation admission overnight with surgical repair planned tomorrow but patient wishes for discharge to home. Compartment syndrome instructions reviewed with patient. Plan is for him to return at 10 AM for surgical repair he was instructed to be n.p.o. after midnight. He was given oxycodone 5 mg 4 tablets for use overnight at home. He agrees to leave AGAINST MEDICAL ADVICE and acknowledges risk of complications including but not limited to compartment syndrome. HPI General Mode of arrival: ambulatory . Date/Time Provider Initiated Documentation: 02/26/20 15:39 . Limitations to Documentation: no limitations . Information obtained by: patient . HPI Narrative: patient presents to the emergency department after being struck by a concrete form in the left side. There was no loss of consciousness he has an abrasion to the left side of his forehead his left forearm and pain and deformity distal to the abrasion. He denies any other injuries Related Data Home Medications Medication Instructions Recorded Confirmed Spiriva with HandiHaler 1 ea INHALATION PRN PRN 01/21/14 02/26/20 carvedilol 12.5 mg PO BID 01/09/19 02/26/20 spironolactone 50 mg PO QAM 01/09/19 02/26/20 ibuprofen 600 mg PO DAILY PRN 11/01/19 02/26/20 Allergies Allergy/AdvReac Type Severity Reaction Status Date / Time methadone [Methadone] Allergy Intermediate Rash/Swelli Unverified 02/26/20 15:43 ng/Edema General Stated Complaint: Trauma HEATHER: 3 Review of Systems All systems reviewed & are unremarkable except as noted in HPI and below Cardiovascular Cardiovascular: Denies chest pain and Denies dyspnea Respiratory Respiratory: Denies cough and Denies dyspnea Gastrointestinal Gastrointestinal: Denies abdominal pain and Denies nausea Musculoskeletal Musculoskeletal: Reports deformity, Reports arthralgias (left forearm) and Reports limited range of motion Integumentary/Breasts Comments: Abrasion to left forehead and left forearm Neurologic Neurologic: Denies behavioral changes Psychiatric Psychiatric: Denies behavioral changes [facility] Medical History (Updated 02/26/20 @ 18:22 by Dana Manley NP) COPD (chronic obstructive pulmonary disease) Hepatitis C treated with interferon as a child; states it is now resolved Hypertension Surgical History History of appendectomy History of cholecystectomy History of splenectomy Social History Smoking/Tobacco Use Status: Current every day Tobacco Type: cigarettes Alcohol Intake: current Alcohol Intake frequency: a few times a week Alcohol type: beer Drug use: Occasionally Substance use type: former substance user and marijuana Details: no longer uses heroin or cocaine (months) Do you feel safe at home: Yes Do you feel safe in your relationship?: Yes Exam Const General: cooperative, acute distress mild, disheveled and ill appearing chronically Nutritional Appearance: average body habitus Orientation: alert, awake and oriented x3 HENMT Head: normal to inspection, normocephalic and abrasion (Forehead left) Mouth: oral mucosae normal Eyes General: appearance normal, both eyes and all related structures Resp Effort & Inspection: normal respiratory effort Auscultation: clear to auscultation bilaterally Cardio Rate: regular rate Rhythm: regular rhythm GI Inspection: normal to inspection Palpation: soft, no guarding and nontender Auscultation: normal bowel sounds Skin Lesions: lesion noted Rashes: no rashes Full body images: 1. abrasion 2. abrasion Extrem General: abnormal to inspection and abnormal ROM Left upper extremity: normal capillary refill and wrist (Good radial and ulnar pulses. No significant swelling) Details: normal to inspection, radial pulse present and ulnar pulse present; no tenderness and no swelling; no cyanosis Elbow/forearm/wrist images: 1. deformity Course Vital Signs Vital signs: Vital Signs Temperature 35.9 C L 02/26/20 15:38 Pulse 87 02/26/20 15:38 Respiratory Rate 18 02/26/20 15:38 Blood Pressure 151/87 H 02/26/20 15:38 Pulse Oximetry 98 02/26/20 15:38 Temperature 35.9 C L 02/26/20 15:38 Temperature Source Temporal Artery Scan 02/26/20 15:38 Pulse 87 02/26/20 15:38 Respiratory Rate 18 02/26/20 15:38 Respiratory Effort Non-Labored 02/26/20 15:53 Respiratory Depth Normal 02/26/20 15:53 Respiratory Pattern Normal 02/26/20 15:53 Blood Pressure 151/87 H 02/26/20 15:38 Pulse Oximetry 98 02/26/20 15:38 Oxygen Delivery Method Room Air 02/26/20 15:38 Oxygen Flow Rate 0 02/26/20 15:38 Pain Level 3 02/26/20 15:53
[2020-02-26] MEDS: Acetaminophen 500 MG TAB 1000 MG PO (16:49)
[2020-02-26] MEDS: Ketorolac 30 MG/ML VIAL IM (16:50)
--- NOTE | 2020-02-26 17:32 | DI.RAD_ITS ---
EXAM: XR FOREARM LT CLINICAL HISTORY: Trauma. TECHNIQUE: 2D digital imaging was performed. COMPARISON: No exams were available for comparison FINDINGS: BONES: There is a fracture seen extending transversely through the distal 3rd of the radius. There i s a full shaft with displacement posteriorly and laterally. There is mild overriding of the fracture fragments.. No bony destructive lesion is seen. There is mild widening of the radiocapitellar dista nce. No fracture is visible. An olecranon spur is present. The wrist is unremarkable. SOFT TISSUE: Soft tissue swelling and soft tissue air. IMPRESSION: Displaced fracture through the distal 3rd of the radius. Mild widening of the radiocapitellar distan ce. No fracture is visible. Further evaluation with elbow films could be considered. DATA REPOSITORY: RADIATION DOSE DELIVERED:
--- NOTE | 2020-02-26 17:45 | DI.VRAD_ITS ---
PROCEDURE INFORMATION: Exam: XR Left Forearm Exam date and time: 02/26/2020 5:32 PM Age: 64 years old Clinical indication: Injury or trauma; Other: PT states cement block landed on his forearm; Blunt trauma (contusions or hematomas); Arm, lower; Left TECHNIQUE: Imaging protocol: XR Left forearm. Views: 2 views. COMPARISON: No relevant prior studies available. FINDINGS: Bones/joints: Acute transverse fracture through the mid left radius. There is one full shaft with lateral and dorsal displacement of the distal fracture fragment. Soft tissues: Diffuse soft tissue swelling. IMPRESSION: Acute transverse fracture of the mid left radius with one shaft with lateral and dorsal displacement. Dictated and Authenticated by: Nick Johnson MD. Ordering:MELITON Christine MD
--- NOTE | 2020-02-26 17:58 | DI.VRAD_ITS ---
PROCEDURE INFORMATION: Exam: CT Head Without Contrast Exam date and time: 02/26/2020 5:34 PM Age: 64 years old Clinical indication: Other: Trauma fell and hit head; Other: Trauma, fell and hit head TECHNIQUE: Imaging protocol: Computed tomography of the head without contrast. COMPARISON: No relevant prior studies available. FINDINGS: Brain: No mass, intracranial hemorrhage, or brain edema. No transcortical defect. Normal cerebellum and brainstem. Cerebral ventricles: No ventriculomegaly. Bones/joints: Normal. Paranasal sinuses: Mild chronic mucosal thickening in the anterior ethmoid sinuses, right frontal sinus and left maxillary sinus is unchanged. No fluid levels. Mastoid air cells: Normal. Vasculature: Bilateral internal carotid artery atherosclerosis. Soft tissues: Unremarkable. IMPRESSION: 1. No acute intracranial abnormality. 2. Incidentally noted chronic mild sinus sinusitis and carotid atherosclerosis. PROCEDURE INFORMATION: Exam: CT Cervical Spine Without Contrast Exam date and time: 02/26/2020 5:34 PM Age: 64 years old Clinical indication: Other: Trauma fell and hit head; Other: Trauma, fell and hit head TECHNIQUE: Imaging protocol: Computed tomography images of the cervical spine without contrast. COMPARISON: No relevant prior studies available. FINDINGS: Vertebrae: No fracture.There is a 1 mm anterior subluxation of C4, 1 mm posterior subluxation C5 relative to C6 and 2 mm anterior degenerative subluxation C7 upon T1. Discs/Spinal canal/Neural foramina: Severe disc space narrowing and uncovertebral spurring is present at every level except C2/3 and C7/T1. Facet sclerosis and spurring is greatest to the right at C3/4 and C7/T1, to the left at C2/3 and C4/5 where there is slight partial fusion. There is no suspicious central canal stenosis though there are neural foramen stenoses that may be clinically significant, to the right most severe at C3/4 and C5/6 and to the left at C2/3, C3/4, C4/5 and C5/6. Epidural space: Normal. Prevertebral Space: Normal. Soft tissues: Unremarkable. Normal appearance of the cervical spinal cord. Lymph nodes: No enlarged lymph nodes. Lungs: Lung apices are clear. IMPRESSION: 1. No acute fracture, traumatic malalignment or concerning central stenosis. 2. Diffuse cervical spondylosis with multilevel minor degenerative subluxations and bilateral neural foramen stenoses, any of which may be clinically significant and as described above. Dictated and Authenticated by: Nick Johnson MD. Ordering:MELITON Christine MD
== END 2020-02-26 18:39 | disposition left against medical advice (07) ==
PROVIDERS: Emergency Provider Nurse Practitioner Acute Care; PCP Internal Medicine
DX: S52.322A Displaced transverse fracture of shaft of left radius, initial encounter for closed fracture (principal); S00.81XA Abrasion of other part of head, initial encounter; W20.8XXA Other cause of strike by thrown, projected or falling object, initial encounter; I10 Essential (primary) hypertension; J44.9 Chronic obstructive pulmonary disease, unspecified; F17.210 Nicotine dependence, cigarettes, uncomplicated
CPT/HCPCS: 29105; 96372; 99284; 70450; 72125; 73090; J1885

== ENCOUNTER 2020-02-27 09:25 | Day surgery (SDC) | payer MEDICAID, SELFPAY ==
[2020-02-27 09:47] VITALS: BP 156/83; PULSE 74; RESP 16; TEMP 37.2; O2SAT 99
--- NOTE | 2020-02-27 10:30 | DI.RAD_ITS ---
EXAM: XR FOREARM LT CLINICAL HISTORY: LEFT RADIAL SHAFT FRACTURE. TECHNIQUE: 2D and realtime digital imaging was performed. COMPARISON: No exams were available for comparison FINDINGS: Fluoroscopy was provided in the OR for Dr. Francisco. Hard copy images show placement of a fixation plat e across the previously noted distal radial fracture. The alignment is now anatomic. Please see procedure note for details. Fluoro time: 0.10 mGy, 5.8 sec RADIATION DOSE DELIVERED:
[2020-02-27] MEDS: Lactated Ringers 1,000 ML 30 ML IV (10:45)
--- NOTE | 2020-02-27 11:25 | HPE_ITS ---
Date of service: 02/27/20 Time of Service: 11:21 Assessment and Plan Assessment and plan (1) Fracture of forearm, left, closed: Status: Acute Assessment and plan: 64-year-old male 1 day status post left traumatic forearm displaced radial shaft fracture Patient remarkably comfortable without signs of compartment syndrome or significant nerve, artery, or tendon injury. Significant complicating medical, surgical, and social history well detailed in EMR. Possible but unlikely open fracture given abrasion near fracture site. Plan to assess intraoperatively. Decision to proceed with outpatient day surgery today 02/27/2020 left radial shaft ORIF any indicated procedures with examination of the DRUJ stability post radius reduction and fixation The risks, benefits, and alternatives were thoroughly discussed. Patient was counseled regarding pain management, expected postoperative course, and recovery timeline. All questions were answered. Informed consent was obtained. Agree and understand treatment plan. Follow up 10-14 days after surgery. Will call if any changes or concerns. Qualifiers: Encounter type: initial encounter Qualified Code(s): S52.92XA - Unspecified fracture of left forearm, initial encounter for closed fracture History of Present Illness History of Present Illness Chief Complaint: Left forearm fracture 02/26/2020 Narrative: Patient was moving cement blocks yesterday unclear reason about a ditch and one of the blocks landed on his left forearm with sudden onset, significant pain and noted deformity. States he had abrasion for the radial forearm. No bone penetrated few. Had to gather himself and was comfortable afterwards. Presents emergency department shortly later due to ongoing pain and deformity left forearm. No pre-existing left forearm issues or fractures. Significant complicating medical, social, and prior orthopedic histories. Everyday smoker. Drinks regularly. States no other illicit sudden sepsis at this time but has a history. Unable to tolerate acetaminophen due to liver disease and history of hepatitis C. Says methadone causes a skin rash and his only allergy. States he can tolerate pain medicine postoperatively short course as needed. Left the emergency room yesterday evening prefer to be home and was compliant with n.p.o. after midnight instructions as well as returning this morning [facility]. Patient preference for outpatient surgery. LEFT hand dominant Remainder of medical, surgical, family, and social history as per EMR reviewed with patient Review of Systems Constitutional Constitutional: Denies chills and Denies fever(s) Eyes Eyes: Denies diplopia and Denies loss of vision ENT Ears, Nose, Mouth, and Throat: Denies dental pain and Denies other (cavities) Cardiovascular Cardiovascular: Denies chest pain with activity, Denies irregular heart rhythm and Denies dyspnea Respiratory Respiratory: Denies cough and Denies dyspnea Gastrointestinal Gastrointestinal: Denies nausea and Denies vomiting Musculoskeletal Musculoskeletal: Reports as per HPI Integumentary/Breasts Skin/Breast: Denies rash and Reports wounds (Abrasion forearm without any active bleeding) Neurologic Neurologic: Reports as per HPI and Denies loss of vision Psychiatric Psychiatric: Denies anxiety and Denies depression Hematologic/Lymphatic Hematologic/Lymphatic: Denies easy bleeding and Denies easy bruising Allergic/Immunologic Allergic/Immunologic: Reports as per HPI [facility] Medical History Bone cancer COPD (chronic obstructive pulmonary disease) Hepatitis C treated with interferon as a child; states it is now resolved Hypertension Lymphoma Surgical History History of appendectomy History of cholecystectomy History of splenectomy Social History Smoking/Tobacco Use Status: Current every day Tobacco Type: cigarettes Alcohol Intake: current Alcohol Intake frequency: a few times a week Alcohol type: beer Drug use: Occasionally Substance use type: former substance user and marijuana Details: no longer uses heroin or cocaine (months) Do you feel safe at home: Yes Do you feel safe in your relationship?: Yes Meds Home Medications and Allergies Home Medications Medication Instructions Recorded Confirmed Type Spiriva with HandiHaler 1 ea INHALATION PRN PRN 01/21/14 02/26/20 History carvedilol 12.5 mg PO BID 01/09/19 02/26/20 History spironolactone 50 mg PO QAM 01/09/19 02/26/20 History Allergies Allergy/AdvReac Type Severity Reaction Status Date / Time methadone [Methadone] Allergy Intermediate Rash/Swelli Unverified 02/27/20 09:44 ng/Edema Exam Const General: cooperative, comfortable and no acute distress Orientation: alert, awake and not confused Limitations: mental status not altered and no language barrier HENMT Head: normocephalic and atraumatic Neck Neck: normal visual inspection and full ROM Resp Effort & Inspection: normal respiratory effort, able to speak in complete sentences, no audible wheezes and no grunting General: deferred Skin Trauma: abrasion (Right forearm without any active bleeding, appears superficial, no fat drop) Neuro General: patient alert, patient awake and patient oriented x3 Cognition: normal cognition Speech: speech normal Extrem Other: Patient examined after regional anesthetic nerve block in place Left upper extremity: Inspection without any ecchymosis, significant edema, or deformity Demonstrates painless range of motion about the shoulder and elbow Demonstrates painless range of motor AIN, PIN, ulnar nerves Dense sensory paresthesias median, radial, ulnar nerves All forearm, hand, and arm compartments completely soft Superficial abrasion without any active bleeding and no fat droplets. Unable to express any drainage. 2+ radial pulse. Regular rate and rhythm. Psych Appearance: grossly normal Mental Status: mental status grossly normal Speech and Movement: speech and movement normal Affect: normal affect Attitude: cooperative Results Imaging Additional studies: CT head neck report reviewed negative for any acute pathology Imaging Studies: Left forearm x-rays done yesterday report images independently reviewed: Significant for completely displaced almost 1cm shortened bayonet apposition radial midshaft fracture without any obvious disruption of the DRUJ, ulna, or radiocapitellar joint Last Vital Signs Temp 99.0 F 02/27/20 09:47 Pulse 74 02/27/20 09:47 Resp 16 02/27/20 09:47 BP 156/83 H 02/27/20 09:47 Pulse Ox 99 02/27/20 09:47 COVID-19 Screening Have you,or household,traveled outside [place] in last 14 days?: No Had IN PERSON contact w/suspected or confirmed C-19 person: No
--- NOTE | 2020-02-27 11:47 | PDOC.DSDIS_ITS ---
Discharge Plan Disposition Patient Disposition: HOME Condition: Stable Discharge Details Reason For Visit: L FOREARM FX Attending Provider: Roman Francisco Primary Care Provider: Burt Nguyen Home Meds and New Rx's Prescriptions: New naproxen 250 mg tablet 250 - 500 mg PO BID PRN (Reason: Moderate pain or swelling) Qty: 60 RF: 0 oxycodone 5 mg tablet 5 - 10 mg PO Q4H PRN (Reason: moderate to severe pain) Qty: 9 RF: 0 Continued Spiriva with HandiHaler 18 MCG capsule, w/inhalation device 1 ea Inhalation PRN PRNRF: 0 carvedilol 12.5 mg Tablet 12.5 mg PO BID RF: 0 spironolactone 50 mg Tablet 50 mg PO QAM RF: 0 Discharge Instructions Additional Instructions: Surgery: Left radial shaft fracture open reduction internal fixation Activity: Nonweightbearing in splint at all times. May use hand as needed for essential activities of daily living. Prescriptions: Naproxen 250 mg take 1-2 every 12 hours with a meal as needed for moderate pain Oxycodone 5 mg take 1-2 every 4-6 hours as needed for severe pain You may use [id number] Tylenol (acetaminophen) as needed for mild pain. These pain medications may be taken all at once or in different combinations as needed. Also, recommend Colace (docusate) as a stool softener as surgery and pain medicine cause constipation. Dressings: Leave splint and dressing in place until follow-up. Keep clean and dry at all times. Follow-up: 10-[address] Francisco Let us know right away if you develop any redness, drainage, fevers, chest pain, or trouble breathing. Do not drink alcohol or drive for at least 24 hours after anesthesia. Please call the office during business hours with any questions or concerns. Referrals: Roman Francisco MD [ [facility] STAFF PHYSICIAN] - Discharge Orders Discharge Orders: Discharge Order (Routine); Ordered 02/27/20 Ordered By: Roman Francisco DS: Diagnosis Discharge Diagnosis (1) Fracture of forearm, left, closed: Status: Acute
--- NOTE | 2020-02-27 13:47 | W.PM.OP ---
Date of service: 02/27/20 Time of Service: 13:48 Operative Note Operative Note DATE OF PROCEDURE: 02/27/20 PRE-OP DIAGNOSIS: Left displaced radial shaft fracture POST-OP DIAGNOSIS: same PROCEDURE: Left radial shaft ORIF, CPT #81449 SURGEON: Roman Francisco SENIOR MICROSTRATEGY DEVELOPER: Arya Dickinson ANESTHESIA: MAC and regional ESTIMATED BLOOD LOSS: 10 TOURNIQUET TIME: 47 COMPLICATIONS: None Patient was transported to: PACU Patient's condition: stable Implants: Synthes 3.5mm LCP and 6x 3.5mm cortex screws Indications: Please see complete medical record for details. Findings: Superficial skin abrasion, no open fracture. DRUJ stable. Procedure Description: In the operating room, monitored anesthesia care was induced. The patient was positioned supine on the operating room table. All bony prominences were well-padded. Preoperative antibiotics were administered. The left forearm was prepped and draped in the usual sterile fashion. The correct patient, procedure, and side of the procedure were all verified prior to incision. The fracture was localized under fluoroscopic guidance and a direct longitudinal volar Chaparro approach to the radial shaft was utilized. Care was taken to retract the brachioradialis and the radial sensory nerve radially and the radial artery ulnarly ligating a few branches on the radial side. The fracture ends were then identified. The forearm was positioned in pronation and only part of the pronator teres was relieved of the radius. Bone forceps were used to deliver the bone ends, which were cleaned of fibrous tissue. Soft tissue was then bluntly and sharply elevated off the radial shaft on the volar aspect proximally distally just enough for the planned plate application. The form was placed back into supination. Manual reduction was then achieved and directed into anatomic position using a fracture zazueta and direct visualization optimization of rotation. A small piece of comminution that had no soft tissue attachment was removed. 6 and 7 hole plates were compared and there was adequate fixation on either in the fracture site with a 6 hole plate that was selected. It was provisionally applied to the volar surface of the radius, adjusted manually, and then an appropriately length 3.5 millimeter screw cortex screw was drilled in a neutral position and applied just distal to the fracture site. Next eccentric drilling was used just proximal to the fracture site to drill in place another screw with tightening achieving excellent compression and maintaining anatomic reduction across the fracture site. C-arm fluoroscopy was used to confirm appropriate fracture site reduction and hardware placement. The remainder of the proximal and distal 4 screw holes were drilled, measured, and filled with appropriately length bicortical cortex screws. Final AP and lateral fluoroscopy was used to confirm maintained reduction and appropriate hardware placement with 6 cortices of fixation proximally distally to the fracture site. The DRUJ was examined in pronation and supination and found to be stable as well as reduced on x-ray. Moist lap was held over the wound and the tourniquet was let down. Hemostasis was achieved. The radial artery was visible intact and palpable distally at the wrist. The wound was copiously irrigated with normal saline. Subcutaneous tissue was closed using 2-0 Monocryl in a buried interrupted fashion. Skin was closed using 3-0 nylon in horizontal mattress fashion. Incision covered with Xeroform, dry 4 x 4 gauze, sterile soft roll. A volar short arm plaster splint was then applied to the forearm and wrist and covered with Mino bandage. The patient awoke from anesthesia without complication and was transferred to the day surgery unit in a stable condition.
[2020-02-27 14:15] VITALS: BP 158/90; PULSE 64; RESP 16; TEMP 36.4; O2SAT 98
== END 2020-02-27 15:06 | disposition home or self-care (01) ==
PROVIDERS: PCP Internal Medicine; Visit Provider Student in an Organized Health Care Education/Training Program
PROC: 0PSJ04Z Reposition Left Radius with Internal Fixation Device, Open Approach (ICD-10-PCS; CPT 25515; principal; 2020-02-27 12:00)
DX: S52.352A Displaced comminuted fracture of shaft of radius, left arm, initial encounter for closed fracture (principal); J44.9 Chronic obstructive pulmonary disease, unspecified; I10 Essential (primary) hypertension; F17.210 Nicotine dependence, cigarettes, uncomplicated; W22.8XXA Striking against or struck by other objects, initial encounter
CPT/HCPCS: 25515; 76942; 99223; 73090; J1100; J2250; J2405; J2704; L3650

== ENCOUNTER 2020-09-19 19:45 | Emergency (ER) | payer MEDICAID, SELFPAY ==
[2020-09-19 19:47] VITALS: PULSE 82; RESP 16; TEMP 36; O2SAT 94
[2020-09-19 19:56] VITALS: BP 131/80
== END 2020-09-19 19:55 ==
LOC: ER 19:57
PROVIDERS: PCP Internal Medicine
DX: Z53.21 Procedure and treatment not carried out due to patient leaving prior to being seen by health care provider (principal)

== ENCOUNTER 2020-11-18 12:44 | Outpatient (REF) | payer MEDICARE, MEDICAID, SELFPAY ==
[2020-11-20 11:47] LABS: COVID-19 RT-PCR UVMMC Result Negative (Negative)
== END 2020-11-18 12:45 | disposition home or self-care (01) ==
LOC: LBN 12:44
PROVIDERS: PCP Internal Medicine; Visit Provider Physician Assistant Medical
DX: Z20.822 Contact with and (suspected) exposure to COVID-19 (principal); J06.9 Acute upper respiratory infection, unspecified
CPT/HCPCS: U0003

== ENCOUNTER 2020-11-19 15:31 | Outpatient (CLI) | payer MEDICARE, MEDICAID, SELFPAY ==
--- NOTE | 2020-11-19 11:19 | DI.RAD_ITS ---
Exam(s) XR CHEST 2V PA LATERAL EXAM: XR CHEST 2V PA LATERAL CLINICAL HISTORY: COUGH R05. TECHNIQUE: 2D digital imaging was performed. COMPARISON: CR CHEST 2 VIEWS PA,LAT from 09/02/2015 CR CHEST 2 VIEWS PA,LAT from 08/17/2016 CR CHEST 2 VIEWS PA,LAT from 11/17/2016 CR CHEST 2 VIEWS PA,LAT from 10/09/2017 CR XR CHEST 2V PA LATERAL from 11/01/2019 FINDINGS: Heart size is normal. The mediastinum is not widened. Right lung remains clear. Previously described band of infiltrate in the left upper lobe is again no johnathan, unchanged. No pleural effusions. No additional significant findings. Widened right AC joint is unchanged and m ay reflect prior surgery at this level IMPRESSION: Continued stable appearance of what is probably scar infiltrate in the left upper lobe. This has bee n present since at least 2015 no new pulmonary findings evident DATA REPOSITORY: RADIATION DOSE DELIVERED:
== END 2020-11-19 15:51 ==
PROVIDERS: PCP Internal Medicine; Visit Provider Physician Assistant Medical
DX: R05 Cough (principal)
CPT/HCPCS: 71046

== ENCOUNTER 2020-12-08 17:12 | Emergency (ER) | payer MEDICARE, MEDICAID, SELFPAY ==
[2020-12-08 17:20] VITALS: BP 127/71; PULSE 94; RESP 11; TEMP 36.4; O2SAT 92
--- NOTE | 2020-12-08 18:28 | ED.GENADUL_ITS ---
Discharge Plan Disposition Patient Disposition: AGAINST MEDICAL ADVICE Condition: Serious Discharge Details Clinical Impression: Opioid overdose Primary Care Provider: Burt Nguyen ED Provider: Rakan Clancy Home Meds and New Rx's Prescriptions: No Action Spiriva with HandiHaler 18 MCG capsule, w/inhalation device 1 ea Inhalation PRN PRNRF: 0 carvedilol 12.5 mg Tablet 12.5 mg PO BID RF: 0 spironolactone 50 mg Tablet 50 mg PO QAM RF: 0 naproxen 250 mg tablet 250 - 500 mg PO BID PRN (Reason: Moderate pain or swelling) Qty: 60 RF: 0 Medical Decision Making 65-year-old male with prior opioid use disorder and accidental overdoses, here unresponsive, no spontaneous respirations with pinpoint pupils. I responded to parking lot with team to respond to the patient in passenger seat of motor vehicle. Patient was given naloxone 2mg IN and bag valve ventilation was performed. After approximately 11 minutes, patient became fully responsive. He was able to be convinced to come into the emergency department. Patient then admitted to injecting what he thought was heroin but notes may have been fentanyl. Patient was observed in the emergency department for over an hour and then demanded to leave AGAINST MEDICAL ADVICE. I had a discussion with the patient about my diagnostic/treatment plan. Patient declines plan and wishes to leave against medical advise. I reiterated my concerns to the patient and explained the risks of leaving prior to completion of workup and treatment. I specifically emphasized the possibility of life- threatening or lifestyle modifying disease that would not be appropriately treated if they leave. Patient verbalized understanding of my concerns and the potential for life threatening or lifestyle modifying disease. Patient has capacity to make informed decision. I again explained my concerns and urged the patient to stay for treatment as outlined. Patient continued to refuse. I then discussed potential less ideal alternatives to diagnostic/treatment plan as outlines and patient refused. I recommended that the patient follow-up with primary care physician PABLO or return to the Emergency Department at any time for further treatment. Patient was offered naloxone and he refused. HPI General Mode of arrival: ambulatory . Date/Time Provider Initiated Documentation: 12/08/20 17:26 . Limitations to Documentation: no limitations . Information obtained by: patient . HPI Narrative: 65-year-old male arrives by private vehicle unresponsive. Friend notes he may have overdosed. History review of systems limited secondary to altered mental status on arrival. Of note patient has had prior ED presentations for opioid overdose. Related Data Home Medications Medication Instructions Recorded Confirmed Spiriva with HandiHaler 1 ea INHALATION PRN PRN 01/21/14 09/19/20 carvedilol 12.5 mg PO BID 01/09/19 09/19/20 spironolactone 50 mg PO QAM 01/09/19 09/19/20 naproxen 250 - 500 mg PO BID PRN #60 tab 02/27/20 09/19/20 Previous Rx's Medication Instructions Recorded naproxen 250 - 500 mg PO BID PRN #60 tab 02/27/20 Allergies Allergy/AdvReac Type Severity Reaction Status Date / Time methadone [Methadone] Allergy Intermediate Rash/Swelli Unverified 09/19/20 19:52 ng/Edema General Stated Complaint: OD/Poison HEATHER: 1 Review of Systems Unobtainable due to mental status [facility] Medical History Bone cancer COPD (chronic obstructive pulmonary disease) Hepatitis C treated with interferon as a child; states it is now resolved Hypertension Lymphoma Surgical History History of appendectomy History of cholecystectomy History of splenectomy Social History Smoking/Tobacco Use Status: Current every day Tobacco Type: cigarettes Smoking risk assessment performed?: Yes Alcohol Intake: current Alcohol Intake frequency: a few times a week Alcohol type: beer Drug use: Occasionally Substance use type: heroin Details: no longer uses heroin or cocaine (months) Do you feel safe at home: Yes Do you feel safe in your relationship?: Yes Exam Const General: in distress and other (Unresponsive) Limitations: altered mental status HENMT Head: normocephalic and atraumatic Mouth: moist mucous membranes Eyes Pupils: pupil size bilaterally 2 Neck Neck: trachea midline and supple Resp Other: No spontaneous respirations Cardio Rate: tachycardic Rhythm: regular rhythm GI Palpation: soft, not firm, no guarding, no masses, not rigid and nontender Skin General skin exam: no rashes or lesions noted Neuro General: not alert and not awake Extrem General: no edema Course Vital Signs Vital signs: Vital Signs Temperature 36.4 C L 12/08/20 17:20 Pulse 94 H 12/08/20 17:20 Respiratory Rate 11 L 12/08/20 17:20 Blood Pressure 127/71 12/08/20 17:20 Pulse Oximetry 92 12/08/20 17:20 Temperature 36.4 C L 12/08/20 17:20 Temperature Source Skin 12/08/20 17:20 Pulse 94 H 12/08/20 17:20 Respiratory Rate 11 L 12/08/20 17:20 Blood Pressure 127/71 12/08/20 17:20 Blood Pressure Position Sitting 12/08/20 17:20 Pulse Oximetry 92 12/08/20 17:20 Oxygen Delivery Method Room Air 12/08/20 17:20 Oxygen Flow Rate 0 12/08/20 17:20 Critical Care Time Critical Care Time Critical Care Time: Yes Total Critical Care Time: 45 Attestation: I spent greater than 45 minutes addressing this patient's immediate life threats. Please see MDM section of note. This time was spent engaged in work directly related to the patient's care, exclusive of separate procedures, and failure to initiate these interventions would have likely resulted in clinically significant or life threatening deterioration in the patient's condition.
== END 2020-12-08 18:29 | disposition left against medical advice (07) ==
LOC: ER 18:46
PROVIDERS: Emergency Provider Student in an Organized Health Care Education/Training Program; PCP Internal Medicine
DX: T40.2X1A Poisoning by other opioids, accidental (unintentional), initial encounter (principal); R40.4 Transient alteration of awareness; F11.10 Opioid abuse, uncomplicated; Z53.29 Procedure and treatment not carried out because of patient's decision for other reasons
CPT/HCPCS: 99291; J2310

== ENCOUNTER 2021-07-16 13:20 | Emergency (ER) | payer MEDICARE, MEDICAID, SELFPAY ==
--- NOTE | 2021-07-16 | DI.RAD_ITS ---
Exam(s) XR FOREARM LT EXAM: XR FOREARM LT CLINICAL HISTORY: Fracture follow up. TECHNIQUE: 2D digital imaging was performed. COMPARISON: CR,XR XR FOREARM LT from 02/26/2020 CR XR WRIST RT COMPLETE from 07/16/2021 FINDINGS: Two views of the left forearm bones compared to 02/26/2020 None there is a fixation plate across the previously present displaced transverse fracture of the mid shaft of the radius. Fracture line at this level is still faintly visible but nondisplaced and there is no hardware loosening nor hardware fracture and no radiographic evidence of osteomyelitis. There are no acute fractures evident in the radius and ulna. No obvious fracture at the level of the elbo w and no elbow joint effusion or swelling of the olecranon bursa. No radiopaque foreign body IMPRESSION: Healing plated fracture at the midshaft of the radius noted. No new fractures evident DATA REPOSITORY: RADIATION DOSE DELIVERED:
[2021-07-16 14:05] VITALS: BP 166/109; PULSE 85; RESP 18; TEMP 36.7; O2SAT 100
[2021-07-16 14:28] LABS: Abs Immature Grans 0.19 10^3/uL (0.0-0.06); HCT 38.3 % (40.0-50.0); HGB 13.9 g/dL (13.5-17.5); MCH 32.7 pg (27.0-33.0); MCHC 36.3 % (32.0-36.0); MCV 90.1 fL (80-95); MPV 9.6 fL (8.0-11.0); Nucleated RBC 0 %; Platelet Count 296 10^3/uL (130-400); RBC 4.25 10^6/uL (4.36-5.78); RDW 12.6 % (11.8-14.1); RDW-SD 41.5 fL; WBC 17.89 10^3/uL (4.4-10.8)
[2021-07-16] MEDS: Acetaminophen 325 MG TAB 650 MG PO (14:37)
[2021-07-16 14:48] LABS: Absolute Lymphocyte Count 1.97 10^3/uL (1.2-3.4); Absolute Monocyte Count 1.07 10^3/uL (0.1-0.8); Absolute Neutrophil Count 14.85 10^3/uL (1.2-6.7); Bands % 2; Diff Comment Manual Differential; Poikilocytes 1+
[2021-07-16 14:56] LABS: ALT 49 U/L (16-63); AST 36 U/L (15-37); Albumin 3.2 g/dL (3.4-5.0); Alkaline Phosphatase 104 U/L (46-116); BUN 31 mg/dL (7-18); Bilirubin, Total 1.4 mg/dL (0.2-1.0); CREATININE 1.5 mg/dL (0.70-1.30); Calcium 9.1 mg/dL (8.5-10.1); Chloride 103 mmol/L (98-107); Estimated GFR 46.97 (mL/min/1.73m2); Glucose 134 mg/dL (74-106); Potassium 3.8 mmol/L (3.5-5.1); Sodium 138 mmol/L (136-145)
--- NOTE | 2021-07-16 15:24 | DI.RAD_ITS ---
Exam(s) XR WRIST RT COMPLETE EXAM: XR WRIST RT COMPLETE CLINICAL HISTORY: fall, pain. TECHNIQUE: 2D digital imaging was performed. COMPARISON: No exams were available for comparison FINDINGS: Three views of the right wrist reveal no evidence of acute fracture nor dislocation nor significant u lnar variance. Scaphoid unremarkable. Bone density normal. No osseous lesions IMPRESSION: No fracture evident DATA REPOSITORY: RADIATION DOSE DELIVERED:
[2021-07-16] MEDS: Doxycycline Hyclate 100 MG CAP PO (15:30)
--- NOTE | 2021-07-16 15:34 | ED.GENADUL_ITS ---
Discharge Plan Disposition Patient Disposition: HOME Condition: Stable Discharge Details Clinical Impression: Cellulitis Primary Care Provider: Burt Nguyen ED Provider: Ijeoma Llanes Home Meds and New Rx's Prescriptions: New doxycycline hyclate 100 mg capsule 100 mg PO BID Qty: 20 0RF Continued Spiriva with HandiHaler 18 MCG capsule, w/inhalation device 1 ea Inhalation PRN [id number] Label Comments: States he hasn't taken it in 3 months. carvedilol 12.5 mg Tablet 12.5 mg PO BID 0RF spironolactone 50 mg Tablet 50 mg PO QAM 0RF naproxen 250 mg tablet 250 - 500 mg PO BID PRN (Reason: Moderate pain or swelling) Qty: 60 0RF Discharge Instructions Instructions: Cellulitis (ED) Additional Instructions: Take antibiotic as prescribed, you are going to take doxycycline 100 mg twice daily, this is very important Keep your wrist splint in place Please return with fever, chills, spreading redness, or should you have new or worsening complaints Recommend 48-hour recheck with your primary care physician or earlier return should you have spreading redness Referrals: Burt Nguyen MD [Primary Care Provider] - Discharge Data Discharge Date/Time-TO BE ENTERED AT DEPARTURE: 07/16/21 16:20 Medical Decision Making Patient has a wrist x-ray does not show acute abnormality he does have a cellulitis with a mild leukocytosis, 17,000, he is afebrile and nontoxic, he declines any current illicit drug use He has started on doxycycline for compliance and was given the first dose in the emergency department, he will be discharged on the 10-day supply, wounds were cleansed and he is placed in a splint 48-hour recheck recommended, discharged home in stable condition with stable vitals, alert, oriented, of decisional capacity ambulatory with steady gait at time of discharge Blood pressure rechecked by primary care Medical Records Medical records reviewed: Yes I reviewed the patient's medical records. Lab Data Lab results reviewed: Yes I reviewed the patient's lab results. HPI General Date/Time Provider Initiated Documentation: 07/16/21 13:31 . HPI Narrative: This 65-year-old male presents with report of fall down several stairs 3 days ago. He denies loss of consciousness. He denies anticoagulation. He denies any fever or chills but he has had worsening pain to his right wrist. Presents for assessment. He states that he has a rash in 6 hours after the incident. He is unsure regarding his tetanus. He has not been evaluated for this injury repo rtedly. He denies any headache, neck pain, strength or sensation changes to extremities. The pain in his right wrist is exacerbated with movement. Related Data Home Medications Medication Instructions Recorded Confirmed tiotropium bromide 18 mcg capsule 1 ea INHALATION PRN PRN 01/21/14 09/19/20 with inhalation device (Spiriva with HandiHaler) carvedilol 12.5 mg tablet 12.5 mg PO BID 01/09/19 09/19/20 spironolactone 50 mg tablet 50 mg PO QAM 01/09/19 09/19/20 naproxen 250 mg tablet 250 - 500 mg PO BID PRN #60 tab 02/27/20 09/19/20 doxycycline hyclate 100 mg capsule 100 mg PO BID #20 cap 07/16/21 Previous Rx's Medication Instructions Recorded naproxen 250 mg tablet 250 - 500 mg PO BID PRN #60 tab 02/27/20 doxycycline hyclate 100 mg capsule 100 mg PO BID #20 cap 07/16/21 Allergies Allergy/AdvReac Type Severity Reaction Status Date / Time methadone [Methadone] Allergy Intermediate Rash/Swelli Unverified 09/19/20 19:52 ng/Edema General Stated Complaint: Cellulitis HEATHER: 3 Review of Systems All systems reviewed & are unremarkable except as noted in HPI and below PFSH All Active Problems (Updated 07/16/21 @ 15:26 by LORNA Miller) Opioid overdose (Acute) Cellulitis (Acute) No-show for appointment (Acute) Sialoadenitis of submandibular gland (Acute) Sialodocholithiasis (Acute) Medical History Bone cancer COPD (chronic obstructive pulmonary disease) Hepatitis C treated with interferon as a child; states it is now resolved Hypertension Lymphoma Surgical History History of appendectomy History of cholecystectomy History of splenectomy Social History Smoking/Tobacco Use Status: Current every day Tobacco Type: cigarettes Smoking risk assessment performed?: Yes Alcohol Intake: current Alcohol Intake frequency: a few times a week Alcohol type: beer Drug use: Occasionally Substance use type: heroin Details: no longer uses heroin or cocaine (months) Do you feel safe at home: Yes Do you feel safe in your relationship?: Yes Exam Const General: cooperative and disheveled Orientation: alert and oriented x3 HENMT Head: normal to inspection Eyes Pupils: PERRL Neck Other: No midline tenderness, no visible sign of trauma Resp Effort & Inspection: normal respiratory effort Auscultation: clear to auscultation bilaterally Cardio Rate: regular rate Rhythm: regular rhythm Other: n/v intact GI Other: no abdominal tenderness Abdomen image: 1. Abrasions and cellulitis noted, no crepitus, no evidence of septic arthritis, neurovascularly intact, no tenderness to right elbow, no fluctuance Neuro General: patient alert and patient oriented x3 Cranial Nerves: CN's II-XI intact bilaterally Course Vital Signs Vital signs: Vital Signs Temperature 36.7 C 07/16/21 14:05 Pulse 85 07/16/21 14:05 Respiratory Rate 18 07/16/21 14:05 Blood Pressure 166/109 H 07/16/21 14:05 Pulse Oximetry 100 07/16/21 14:05 Temperature 36.7 C 07/16/21 14:05 Temperature Source Tympanic 07/16/21 14:05 Pulse 85 07/16/21 14:05 Respiratory Rate 18 07/16/21 14:05 Respiratory Effort 07/16/21 14:08 Blood Pressure 166/109 H 07/16/21 14:05 Blood Pressure Position Supine 07/16/21 14:05 Pulse Oximetry 100 07/16/21 14:05 Oxygen Delivery Method Room Air 07/16/21 14:05 Oxygen Flow Rate 0 07/16/21 14:05 Pain Level 7 07/16/21 14:05 Lab/Test Results Lab/Test Results: Laboratory Tests Range/Units 07/16/21 07/16/21 14:20 14:20 WBC (4.4-10.8) 10^3/uL 17.89 H RBC (4.36-5.78) 10^6/uL 4.25 L Hgb (13.5-17.5) g/dL 13.9 Hct (40.0-50.0) % 38.3 L MCV (80-95) fL 90.1 MCH (27.0-33.0) pg 32.7 MCHC (32.0-36.0) % 36.3 H RDW (11.8-14.1) % 12.6 Plt Count (130-400) 10^3/uL 296 MPV (8.0-11.0) fL 9.6 Immature Gran % 0.0 Neutrophils % 81.0 Band Neutrophils % 2 Lymphocytes % 11.0 Monocytes % 6.0 Eosinophils % 0.0 Basophils % 0.0 Nucleated RBC % % 0 Absolute Neutrophils (1.2-6.7) 10^3/uL 14.85 H Absolute Lymphocytes (1.2-3.4) 10^3/uL 1.97 Absolute Monocytes (0.1-0.8) 10^3/uL 1.07 H Absolute Eosinophils (0.0-0.7) 10^3/uL 0.00 Absolute Basophils (0.0-0.2) 10^3/uL 0.00 RBC Morphology See Below Poikilocytosis 1+ Sodium (136-145) mmol/L 138 Potassium (3.5-5.1) mmol/L 3.8 Chloride (98-107) mmol/L 103 Carbon Dioxide (21.0-32.0) mmol/L 26.0 Anion Gap (3-11) mmol/L 9.0 BUN (7-18) mg/dL 31 H Creatinine (0.70-1.30) mg/dL 1.5 H Estimated GFR/1.73 m2 (mL/min/1.73m2) 46.97 Glucose (74-106) mg/dL 134 H Calcium (8.5-10.1) mg/dL 9.1 Total Bilirubin (0.2-1.0) mg/dL 1.4 H AST (15-37) U/L 36 ALT (16-63) U/L 49 Alkaline Phosphatase (46-116) U/L 104 Total Protein (6.4-8.2) g/dL 8.0 Albumin (3.4-5.0) g/dL 3.2 L PAWSS Have you Been Recently Intoxicated or Drunk Within the Last 30 days?: Yes Have you Ever Experienced Previous Episodes of Alcohol Withdrawal?: No Have you ever Experienced Withdrawal Seizures?: No Have you ever Experienced Delirium Tremens(DT)s?: No Have you ever undergone Alcohol Rehabilitation Treatment (i.e, inpt ot outpatient treatment programs)?: No Have you ever Experienced Blackouts?: No Have you ever Combined Alcohol with other Downers within the last 90 days?: No Have you ever Combined Alcohol with any other Substance of Abuse during the last 90 days?: No Positive Blood Alcohol level on Presentation? [PCS.BAL]: No Evidence of Increased Autonomic Activity (i.e. HR>120, tremor, sweating, agitation, nausea)?: No Result: 1
[2021-07-16] MEDS: Doxycycline Hyclate 100 MG, 2 CAPS/BTL PO (15:43)
== END 2021-07-16 16:20 | disposition home or self-care (01) ==
PROVIDERS: Emergency Provider Physician Assistant; PCP Internal Medicine
DX: S60.811A Abrasion of right wrist, initial encounter (principal); L03.113 Cellulitis of right upper limb; W10.8XXA Fall (on) (from) other stairs and steps, initial encounter; D72.829 Elevated white blood cell count, unspecified
CPT/HCPCS: 29125; 80053; 90471; 99284; 73090; 73110; 85025; 99283

== ENCOUNTER 2021-07-18 13:16 | Emergency (ER) | payer MEDICARE, MEDICAID, SELFPAY ==
[2021-07-18] VITALS (28 sets, daily range): BP systolic 153–202; BP diastolic 90–119; PULSE 69–82; RESP 11–24; TEMP 36.6–37; O2SAT 97–100
[2021-07-18 13:50] LABS: HCT 42.5 % (40.0-50.0); HGB 14.7 g/dL (13.5-17.5); MCH 31.7 pg (27.0-33.0); MCHC 34.6 % (32.0-36.0); MCV 91.8 fL (80-95); MPV 9.7 fL (8.0-11.0); Nucleated RBC 0 %; Platelet Count 346 10^3/uL (130-400); RBC 4.63 10^6/uL (4.36-5.78); RDW 12.8 % (11.8-14.1); RDW-SD 43.2 fL; WBC 12.57 10^3/uL (4.4-10.8)
[2021-07-18 13:55] LABS: ESR 11 mm/hr (0-20)
[2021-07-18] MEDS: Carvedilol 12.5 MG TAB PO (13:56)
[2021-07-18 13:59] LABS: ALT 45 U/L (16-63); AST 35 U/L (15-37); Albumin 3.7 g/dL (3.4-5.0); Alkaline Phosphatase 129 U/L (46-116); Anion Gap 10.5 mmol/L (3-11); BUN 29 mg/dL (7-18); Bilirubin, Total 1.3 mg/dL (0.2-1.0); C-Reactive Protein 8.13 mg/dL (0.0-0.3); CO2 26.5 mmol/L (21.0-32.0); CREATININE 1.6 mg/dL (0.70-1.30); Calcium 9.3 mg/dL (8.5-10.1); Chloride 103 mmol/L (98-107); Glucose 110 mg/dL (74-106); Potassium 3.8 mmol/L (3.5-5.1); Sodium 140 mmol/L (136-145); Total Protein 9.2 g/dL (6.4-8.2)
[2021-07-18 14:20] LABS: Absolute Lymphocyte Count 3.02 10^3/uL (1.2-3.4); Absolute Monocyte Count 1.51 10^3/uL (0.1-0.8); Absolute Neutrophil Count 8.04 10^3/uL (1.2-6.7); Diff Comment Manual Differential; RBC Morphology Normal
[2021-07-18] MEDS: Ketorolac 15 MG/ML VIAL IVP (14:41)
[2021-07-18] MEDS: Doxycycline Hyclate 100 MG CAP PO (14:41)
--- NOTE | 2021-07-18 15:34 | ED.GENADUL_ITS ---
Discharge Plan Disposition Patient Disposition: HOME Condition: Stable Discharge Details Clinical Impression: Cellulitis Primary Care Provider: Burt Nguyen ED Provider: Ijeoma Llanes Home Meds and New Rx's Prescriptions: New doxycycline hyclate 100 mg tablet 100 mg PO BID Qty: 18 0RF Continued Spiriva with HandiHaler 18 MCG capsule, w/inhalation device 1 ea Inhalation PRN [id number] Label Comments: States he hasn't taken it in 3 months. carvedilol 12.5 mg Tablet 12.5 mg PO BID 0RF spironolactone 50 mg Tablet 50 mg PO QAM 0RF doxycycline hyclate 100 mg capsule 100 mg PO BID Qty: 20 0RF naproxen 250 mg tablet 250 - 500 mg PO BID PRN (Reason: Moderate pain or swelling) Qty: 60 0RF Discharge Instructions Instructions: Cellulitis (ED) Additional Instructions: Continue taking your antibiotic as instructed This is to be taken twice a day You are doing a good job of this Also you should be taking your blood pressure medication as your blood pressure was very high when you arrive You are also doing a great job staying away from opiate Please get economic services tomorrow, they can do with living arrangement Please return earlier should you have new or worsening complaints 48-hour recheck recommended Discharge Data Discharge Date/Time-TO BE ENTERED AT DEPARTURE: 07/18/21 16:16 Medical Decision Making Patient is still taking.cyclin he is to continue this medication, he did have difficulty obtaining his antibiotic and so prescription was sent to [facility] and RCT will bring patient there upon discharge His wounds were cleansed and rewrapped His initial white blood cell count was 17,000, it is decreased to 12,000, his CRP is 80, however I do not see clear indication to admit this patient at this time, he seems to be responding to outpatient antibiotics He is fully alert and oriented He is currently living at a friend's house and is looking for dedicated housing as he is homeless, he was given resources in the [facility] management met with this patient He is discharged home in stable condition with stable vitals 48-hour recheck recommended Wound culture pending Medical Records Medical records reviewed: Yes I reviewed the patient's medical records. Lab Data Lab results reviewed: Yes I reviewed the patient's lab results. HPI General Date/Time Provider Initiated Documentation: 07/18/21 13:16 . HPI Narrative: This 65-year-old gentleman with history of opiate abuse, cellulitis, hypertension presents with report of recheck for cellulitis which patient feels is worsening. He is taking his antibiotic, doxycycline as prescribed. He was started on this medication approximately 48 hours ago. He has also been wearing the splint. He denies any new injuries. He denies fever but states he had intermittent chills. Denies any chest pain or shortness of breath. Has not used any IV drugs for the past month per patient. Denies any chest pain or shortness of breath. Denies any dizziness or weakness. Is currently residing at a friend's house reportedly. Denies skin popping history. Does state in the past she has smoked crack cocaine Denies injecting crack or opiate Related Data Home Medications Medication Instructions Recorded Confirmed tiotropium bromide 18 mcg capsule 1 ea INHALATION PRN PRN 01/21/14 07/18/21 with inhalation device (Spiriva with HandiHaler) carvedilol 12.5 mg tablet 12.5 mg PO BID 01/09/19 07/18/21 spironolactone 50 mg tablet 50 mg PO QAM 01/09/19 07/18/21 naproxen 250 mg tablet 250 - 500 mg PO BID PRN #60 tab 02/27/20 07/18/21 doxycycline hyclate 100 mg capsule 100 mg PO BID #20 cap 07/16/21 07/18/21 doxycycline hyclate 100 mg tablet 100 mg PO BID #18 tab 07/18/21 Previous Rx's Medication Instructions Recorded naproxen 250 mg tablet 250 - 500 mg PO BID PRN #60 tab 02/27/20 doxycycline hyclate 100 mg capsule 100 mg PO BID #20 cap 07/16/21 doxycycline hyclate 100 mg tablet 100 mg PO BID #18 tab 07/18/21 Allergies Allergy/AdvReac Type Severity Reaction Status Date / Time methadone [Methadone] Allergy Intermediate Rash/Swelli Unverified 07/18/21 13:23 ng/Edema General Stated Complaint: Cellulitis HEATHER: 3 Review of Systems All systems reviewed & are unremarkable except as noted in HPI and below PFSH All Active Problems (Updated 07/18/21 @ 15:41 by LORNA Miller) Opioid overdose (Acute) Cellulitis (Acute) No-show for appointment (Acute) Sialoadenitis of submandibular gland (Acute) Sialodocholithiasis (Acute) Medical History Bone cancer COPD (chronic obstructive pulmonary disease) Hepatitis C treated with interferon as a child; states it is now resolved Hypertension Lymphoma Surgical History History of appendectomy History of cholecystectomy History of splenectomy Social History Smoking/Tobacco Use Status: Current every day Tobacco Type: cigarettes Smoking risk assessment performed?: Yes Alcohol Intake: current Alcohol Intake frequency: a few times a week Alcohol type: beer Drug use: Occasionally Substance use type: heroin Details: no longer uses heroin or cocaine (months) Do you feel safe at home: Yes Do you feel safe in your relationship?: Yes Exam Const General: cooperative and well groomed Orientation: alert and oriented x3 Eyes Pupils: PERRL Resp Effort & Inspection: normal respiratory effort Cardio Rate: regular rate Skin Other: General areas rash evaluation, right wrist with a large abrasion which surrounding it, approximately 1 inch of surrounding erythema, no evidence of septic wrist or obvious lymphangitis Neurovascularly intact, no evidence of petechiae or purpura Neuro General: patient alert and patient oriented x3 Course Vital Signs Vital signs: Vital Signs Temperature 36.6 C 07/18/21 13:19 Pulse 82 07/18/21 13:19 Respiratory Rate 20 07/18/21 13:19 Blood Pressure 183/119 H 07/18/21 13:19 Pulse Oximetry 97 07/18/21 13:19 Temperature 37.0 C 07/18/21 13:57 Temperature Source Temporal Artery Scan 07/18/21 13:57 Pulse 69 07/18/21 15:02 Pulse 73 07/18/21 15:02 Respiratory Rate 12 07/18/21 15:02 Respiratory Effort Non-Labored 07/18/21 13:50 Blood Pressure 177/92 H 07/18/21 15:02 Blood Pressure Mean 112 07/18/21 15:02 Blood Pressure Position Sitting 07/18/21 13:19 Pulse Oximetry 98 07/18/21 15:02 Oxygen Delivery Method Room Air 07/18/21 13:19 Oxygen Flow Rate 0 07/18/21 13:19 Pain Level 8 07/18/21 13:19 Comment 07/18/21 13:19 Lab/Test Results Lab/Test Results: 07/18/21 13:40 Wrist - Right Wound Culture - Pending 07/18/21 13:40 Wrist - Right Gram Stain - Final Laboratory Tests Range/Units 07/18/21 07/18/21 07/18/21 13:35 13:35 13:35 WBC (4.4-10.8) 10^3/uL 12.57 H RBC (4.36-5.78) 10^6/uL 4.63 Hgb (13.5-17.5) g/dL 14.7 Hct (40.0-50.0) % 42.5 MCV (80-95) fL 91.8 MCH (27.0-33.0) pg 31.7 MCHC (32.0-36.0) % 34.6 RDW (11.8-14.1) % 12.8 Plt Count (130-400) 10^3/uL 346 MPV (8.0-11.0) fL 9.7 Immature Gran % 0.0 Neutrophils % 64.0 Lymphocytes % 24.0 Monocytes % 12.0 Eosinophils % 0.0 Basophils % 0.0 Nucleated RBC % % 0 Absolute Neutrophils (1.2-6.7) 10^3/uL 8.04 H Absolute Lymphocytes (1.2-3.4) 10^3/uL 3.02 Absolute Monocytes (0.1-0.8) 10^3/uL 1.51 H Absolute Eosinophils (0.0-0.7) 10^3/uL 0.00 Absolute Basophils (0.0-0.2) 10^3/uL 0.00 RBC Morphology Normal ESR (0-20) mm/hr 11 Sodium (136-145) mmol/L 140 Potassium (3.5-5.1) mmol/L 3.8 Chloride (98-107) mmol/L 103 Carbon Dioxide (21.0-32.0) mmol/L 26.5 Anion Gap (3-11) mmol/L 10.5 BUN (7-18) mg/dL 29 H Creatinine (0.70-1.30) mg/dL 1.6 H Estimated GFR/1.73 m2 (mL/min/1.73m2) 43.60 Glucose (74-106) mg/dL 110 H Calcium (8.5-10.1) mg/dL 9.3 Total Bilirubin (0.2-1.0) mg/dL 1.3 H AST (15-37) U/L 35 ALT (16-63) U/L 45 Alkaline Phosphatase (46-116) U/L 129 H C-Reactive Protein (0.0-0.3) mg/dL 8.13 H Total Protein (6.4-8.2) g/dL 9.2 H Albumin (3.4-5.0) g/dL 3.7 PAWSS Have you Been Recently Intoxicated or Drunk Within the Last 30 days?: Yes Have you Ever Experienced Previous Episodes of Alcohol Withdrawal?: No Have you ever Experienced Withdrawal Seizures?: No Have you ever Experienced Delirium Tremens(DT)s?: No Have you ever undergone Alcohol Rehabilitation Treatment (i.e, inpt ot outpatient treatment programs)?: No Have you ever Experienced Blackouts?: No Have you ever Combined Alcohol with other Downers within the last 90 days?: No Have you ever Combined Alcohol with any other Substance of Abuse during the last 90 days?: No Positive Blood Alcohol level on Presentation? [PCS.BAL]: Unable to Obtain Evidence of Increased Autonomic Activity (i.e. HR>120, tremor, sweating, agitation, nausea)?: No Result: 1
--- NOTE | 2021-07-18 18:17 | CMPROGNOTE_ITS ---
- If Service Date Differs Date of service: 07/18/21 Time of Service: 18:17 Care Management Progress Note Mehrdad presents in the ED for cellulitis. At the request of ED provider, EB meets with Mehrdad to discuss housing options. EB assists Mehrdad in calling [place] [facility] for emergency housing. Mehrdad, however, gets frustrated with being on hold and disconnects the call after several minutes. He is returning to his friend's home for the night and will go to [facility] in the [facility] to get help with housing. EB also calls [facility] to ensure that the script for antibiotics sent to their pharmacy does not require prior authorization and to inquire about the co-pay. The pharmacist advises that the co-pay is $1.00 and the abx does not require prior authorization. This information is relayed to Mehrdad.
--- NOTE | 2021-07-19 16:15 | W.ED.FU ---
Follow Up Plan: Wound culture from right wrist growing strep pyogenes. Patient was started on doxycycline 100 mg twice daily at his ED visit. I contacted patient at phone number listed to see how his infection is responding to antibiotic and unfortunately no one picked up and unable to leave voicemail. I did contact the patient's primary care office and Dr. Nguyen noted he would have chronic field care coordinator reach out to set up timely follow-up appointment with newly assigned PCP Dr. Cage.
== END 2021-07-18 16:16 | disposition home or self-care (01) ==
PROVIDERS: Emergency Provider Physician Assistant; PCP Internal Medicine
DX: L03.113 Cellulitis of right upper limb (principal); B95.0 Streptococcus, group A, as the cause of diseases classified elsewhere
CPT/HCPCS: 36415; 80053; 85652; 87077; 96374; 99284; 85025; 86140; 87070; 87186; 87205; 99283; J1885

== ENCOUNTER 2021-08-23 15:04 | Emergency (ER) | payer MEDICARE, MEDICAID, SELFPAY ==
[2021-08-23 15:09] VITALS: BP 172/97; PULSE 98; RESP 16; TEMP 38.1; O2SAT 95
--- NOTE | 2021-08-23 15:20 | W.ED.GENAD ---
Discharge Plan Disposition Patient Disposition: HOME Condition: Stable Discharge Details Clinical Impression: Abscess of perineum Primary Care Provider: Burt Nguyen ED Provider: Rodriguez Warren Home Meds and New Rx's Prescriptions: New sulfamethoxazole-trimethoprim [Bactrim DS] 800-160 mg tablet 1 tab PO BID Qty: 14 0RF amoxicillin-pot clavulanate 875-125 mg tablet 1 tab PO BID Qty: 14 0RF Continued Spiriva with HandiHaler 18 MCG capsule, w/inhalation device 1 ea Inhalation PRN PRN0RF Label Comments: States he hasn't taken it in 3 months. carvedilol 12.5 mg Tablet 12.5 mg PO BID 0RF spironolactone 50 mg Tablet 50 mg PO QAM 0RF doxycycline hyclate 100 mg capsule 100 mg PO BID Qty: 20 0RF doxycycline hyclate 100 mg tablet 100 mg PO BID Qty: 18 0RF naproxen 250 mg tablet 250 - 500 mg PO BID PRN (Reason: Moderate pain or swelling) Qty: 60 0RF Discharge Instructions Instructions: Abscess (ED) Additional Instructions: follow up with your primary care provider within 1 week. They should also know about the cat scan showing you have liver disease with varices, you may need to see a specimen preparation assistant Try to soak in a tub several times a day to keep the abscess open to drain for a few days if you feel more ill, have severe worsening pain or fevers return to the emergency department Medical Decision Making 66 yo male with prior history of substance abuse who comes in with pain and lump in the perineal region since . He went to [facility] today who referred him here. HE denies known fevers at home but had a temp to 38.1 here (nursing states this was done on the forehead after he came in from the sun, orally was 98). He has 2x4cm erythema between the scrotum and rectum over the perineum, and in the middle is a 2cm fluctuance. He is tender to palpation in the erythematous region without crepitus. No pain with bowel movements. Scrotum has no erythema, no testicle tenderness or warmth. Denies urinary symptoms. suspect abscess but given degree of pain and also location will obtain labs and ct to evaluate for josselyn's and possibly deeper abscess. labs unremarkable, does have leukocytes in urine but no dysuria, culture ordered. CT read as no acute abnormality though I feel there is a superficial abscess on CT in perineum no deep abscess. has cirrhosis of liver and varices, he does state he has history of alcohol abuse and hepatitis, he was advised he needs to f/u with pcp and discuss GI referral for this. He consents to I and D. I and D done under sterile techinque and expressed copious purulent material, culture sent. He is stable for d/c and will f/u with pcp, return precautions given Differential Diagnosis Differential Diagnosis: abscess, cellulitis, josselyn's Medical Records Medical records reviewed: Yes I reviewed the patient's medical records. Imaging Data Radiologic Study: Attestation: I personally reviewed and interpreted this imaging study as follows: Imaging: CT Scan Radiologist's impression: IMPRESSION: 1. No acute abnormality of the abdomen and pelvis. 2. Cirrhotic morphology of the liver with prominent gastric varices and also esophageal varices noted. Endoscopic assessment should be considered if not previously performed. 3. Prior splenectomy and cholecystectomy. 4. Nonobstructing nephrolithiasis. 5. Left fat containing inguinal hernia Lab Data Lab results reviewed: Yes I reviewed the patient's lab results. HPI General Mode of arrival: ambulatory. Date/Time Provider Initiated Documentation: 08/23/21 15:08. Limitations to Documentation: no limitations. Information obtained by: patient. History of Present Illness 66 year old M presents to the emergency department with the chief complaint of perineal rash, described as moderate, Patient started experiencing this day(s) (3) and it has been constant. improves with No relieving factors improve symptom(s), No exacerbating factors reported . Patient did receive the following treatments prior to arrival, none Related Data Home Medications Medication Instructions Recorded Confirmed tiotropium bromide 18 mcg capsule 1 ea INHALATION PRN PRN 01/21/14 07/18/21 with inhalation device (Spiriva with HandiHaler) carvedilol 12.5 mg tablet 12.5 mg PO BID 01/09/19 07/18/21 spironolactone 50 mg tablet 50 mg PO QAM 01/09/19 07/18/21 naproxen 250 mg tablet 250 - 500 mg PO BID PRN #60 tab 02/27/20 07/18/21 doxycycline hyclate 100 mg capsule 100 mg PO BID #20 cap 07/16/21 07/18/21 doxycycline hyclate 100 mg tablet 100 mg PO BID #18 tab 07/18/21 amoxicillin 875 mg-potassium 1 tab PO BID #14 tab 08/23/21 clavulanate 125 mg tablet sulfamethoxazole 800 1 tab PO BID #14 tab 08/23/21 mg-trimethoprim 160 mg tablet (Bactrim DS) Previous Rx's Medication Instructions Recorded naproxen 250 mg tablet 250 - 500 mg PO BID PRN #60 tab 02/27/20 doxycycline hyclate 100 mg capsule 100 mg PO BID #20 cap 07/16/21 doxycycline hyclate 100 mg tablet 100 mg PO BID #18 tab 07/18/21 amoxicillin 875 mg-potassium 1 tab PO BID #14 tab 08/23/21 clavulanate 125 mg tablet sulfamethoxazole 800 1 tab PO BID #14 tab 08/23/21 mg-trimethoprim 160 mg tablet (Bactrim DS) Allergies Allergy/AdvReac Type Severity Reaction Status Date / Time methadone [Methadone] Allergy Intermediate Rash/Swelli Unverified 08/23/21 15:13 ng/Edema General Stated Complaint: Cellulitis HEATHER: 3 Review of Systems All systems reviewed & are unremarkable except as noted in HPI and below Constitutional Constitutional: Denies chills, Denies fever(s) and Denies weakness ENT Ears, Nose, Mouth, and Throat: Denies change in voice Cardiovascular Cardiovascular: Denies chest pain and Denies dyspnea Respiratory Respiratory: Denies cough and Denies dyspnea Gastrointestinal Gastrointestinal: Denies abdominal pain, Denies nausea and Denies vomiting Genitourinary Genitourinary: Denies dysuria Neurologic Neurologic: Denies weakness PFSH All Active Problems (Updated 08/23/21 @ 19:01 by Rodriguez Warren MD) Opioid overdose (Acute) Abscess of perineum (Acute) No-show for appointment (Acute) Sialoadenitis of submandibular gland (Acute) Sialodocholithiasis (Acute) Medical History Bone cancer COPD (chronic obstructive pulmonary disease) Hepatitis C treated with interferon as a child; states it is now resolved Hypertension Lymphoma Surgical History History of appendectomy History of cholecystectomy History of splenectomy Social History Smoking/Tobacco Use Status: Current every day Tobacco Type: cigarettes Smoking risk assessment performed?: Yes Alcohol Intake: current Alcohol Intake frequency: a few times a week Alcohol type: beer Drug use: Occasionally Substance use type: heroin Details: no longer uses heroin or cocaine (months) Do you feel safe at home: Yes Do you feel safe in your relationship?: Yes Exam Const General: no acute distress Orientation: alert HENMT Head: normal to inspection Ears: external ears normal General nose exam: external nose normal Mouth: moist mucous membranes Eyes General: appearance normal, both eyes and all related structures Neck Neck: normal visual inspection Resp Effort & Inspection: normal respiratory effort and able to speak in complete sentences Cardio Rate: regular rate Scrotum: scrotum normal and no ulcerations Skin General skin exam: elasticity normal Neuro General: patient alert and patient oriented x3 Extrem General: normal to inspection Psych Mental Status: mental status grossly normal Course Vital Signs Vital signs: Vital Signs Temperature 38.1 C H 08/23/21 15:09 Pulse 98 H 08/23/21 15:09 Respiratory Rate 16 08/23/21 15:09 Blood Pressure 172/97 H 08/23/21 15:09 Pulse Oximetry 95 08/23/21 15:09 Temperature 38.1 C H 08/23/21 15:09 Temperature Source Skin 08/23/21 15:09 Pulse 98 H 08/23/21 15:09 Respiratory Rate 16 08/23/21 15:09 Blood Pressure 172/97 H 08/23/21 15:09 Blood Pressure Position Sitting 08/23/21 15:09 Pulse Oximetry 95 08/23/21 15:09 Oxygen Delivery Method Room Air 08/23/21 15:09 Oxygen Flow Rate 0 08/23/21 15:09 Pain Level 5 08/23/21 15:09 Lab/Test Results Lab/Test Results: 08/23/21 15:16 Blood Blood Culture - Pending 08/23/21 15:16 Blood Blood Culture - Pending
[2021-08-23 16:57] LABS: Source Nasal/Nares
[2021-08-23] MEDS: Normal Saline Flush 10 ML SYR IVP (17:00)
[2021-08-23] MEDS: Normal Saline 1,000 ML 1000 ML IV (17:00)
[2021-08-23] MEDS: Ketorolac 15 MG/ML VIAL IVP (17:01)
[2021-08-23 17:06] LABS: Lactate 1.1 mmol/L (0.6-1.4)
[2021-08-23 17:07] LABS: HCT 33.8 % (40.0-50.0); HGB 11.9 g/dL (13.5-17.5); Immature Grans % 0.5; MCH 32.1 pg (27.0-33.0); MCHC 35.2 % (32.0-36.0); MCV 91.1 fL (80-95); MPV 9.9 fL (8.0-11.0); Platelet Count 275 10^3/uL (130-400); RBC 3.71 10^6/uL (4.36-5.78); RDW 12.5 % (11.8-14.1); RDW-SD 41.5 fL
[2021-08-23 17:20] LABS: Absolute Lymphocyte Count 2.24 10^3/uL (1.2-3.4); Absolute Monocyte Count 1.79 10^3/uL (0.1-0.8); Absolute Neutrophil Count 10.88 10^3/uL (1.2-6.7); Diff Comment Manual Differential; RBC Morphology Normal
[2021-08-23 17:27] LABS: ALT 38 U/L (16-63); AST 44 U/L (15-37); Alkaline Phosphatase 114 U/L (46-116); Anion Gap 8.5 mmol/L (3-11); BUN 27 mg/dL (7-18); Bilirubin, Total 1.2 mg/dL (0.2-1.0); CO2 25.5 mmol/L (21.0-32.0); CREATININE 1.4 mg/dL (0.70-1.30); Calcium 8.4 mg/dL (8.5-10.1); Chloride 103 mmol/L (98-107); Glucose 103 mg/dL (74-106); Potassium 3.7 mmol/L (3.5-5.1); Sodium 137 mmol/L (136-145); Total Protein 7.5 g/dL (6.4-8.2)
[2021-08-23 17:35] LABS: COVID-19 PCR Negative (Negative)
[2021-08-23] MEDS: Omnipaque 350 MG/ML 100 ML BTL IJ (17:45)
--- NOTE | 2021-08-23 17:54 | DI.CT_ITS ---
Exam(s) CT ABDOMEN PELVIS W EXAM: CT ABDOMEN PELVIS W CLINICAL HISTORY: perineal cellulitis, ?josselyn's?. TECHNIQUE: Imaging Protocol: Axial computed tomography images with coronal and sagittal reformatted images were created and reviewed CONTRAST MATERIAL: Intravenous: Omnipaque 100cc Oral: None COMPARISON: CT CT thorax abd/pel CTA from 01/09/2019 FINDINGS: VISUALIZED LUNG BASES: No nodules nor pleural effusions evident. ABDOMEN: There is no ascites. LIVER: Cirrhotic appearing liver again noted. Multi nodular but without obvious neoplasm. GALLBLADDER/BILIARY: The gallbladder is surgically absent. CBD is not dilated. PANCREAS: No evidence of pancreatic mass nor dilatation of the pancreatic duct. No pancreatic calcif ications evident. 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 Multiple varices are noted, including gastric varices. Portal vein is patent. ADRENALS: There are no significant adrenal masses. KIDNEYS:There are multiple small nonobstructive calculi in both kidneys. Small cyst in the right kid kristi. No solid renal masses. No hydronephrosis nor hydroureter. No obvious abnormality in the urina ry bladder.. ABDOMINAL AORTA: Heavily calcified not significantly enlarged. LYMPH NODES:In addition to varices there are few slightly prominent para aortic and retroperitoneal l ymph nodes. ABDOMINAL WALL: Fat containing left inguinal hernia noted. GI: There is a perianal abscess measuring 1.8 x 1.5 x 1.7 cm. There is surrounding streaking within the medial gluteal fat bilaterally, more so on the right side. Ischial rectal fat is clean. No find ings at and above the levator ani musculature. No evidence of bowel obstruction or ischemic appearing bowel loops. No free air. PELVIS: GI: No evidence of appendicitis.No evidence of sigmoid diverticulitis. LYMPH NODES: There is no intrapelvic nor inguinal adenopathy. REPRODUCTIVE: Prostate and seminal vesicles unremarkable. URINARY BLADDER: No calculi nor obvious masses evident OSSEOUS: Advanced disc space narrowing at L2-3 level. No osseous lesions. IMPRESSION: 1. Main acute finding here is an 18 x 15 x 17 millimeter perianal abscess with some surrounding fat s treaking but no gas in the soft tissues. No prominent regional adenopathy. 2. Cirrhotic liver with abundant varices. Spleen is noted to be absent. Portal vein is patent altho ugh this study not assessed direction of flow in the portal vein. There is no ascites. 3. Gallbladder surgically absent. The biliary tree is not dilated. 4. In addition to varices there are slightly prominent para-aortic lymph nodes. Study 1st read by [facility] Final report called by myself to ER physician 08/24/2021 9:30 a.m. RADIATION DOSE DELIVERED: 769.77mGy.cm Total DLP DATA REPOSITORY: All CT scans at this facility are submitted to the National Radiology Data Registry (NRDR) Dose Index Registry (DIR) with the [employer] (ACR). RADIATION OPTIMIZATION: All CT scans at this facility use at least one of these dose optimization te chniques: automated exposure control; mA and/or kV adjustment per patient size (includes targeted exa ms where dose is matched to clinical indication); or iterative reconstruction.
--- NOTE | 2021-08-23 18:22 | DI.VRAD_ITS ---
PROCEDURE INFORMATION: Exam: CT Abdomen And Pelvis With Contrast Exam date and time: 08/23/2021 5:54 PM Age: 66 years old Clinical indication: Abdominal pain; Generalized; Patient HX: Perineal cellulitis, ? fourniers? ; Additional info: Appendectomy, splenectomy, cholecystectomy. TECHNIQUE: Imaging protocol: Computed tomography of the abdomen and pelvis with contrast. Radiation optimization: All CT scans at this facility use at least one of these dose optimization techniques: automated exposure control; mA and/or kV adjustment per patient size (includes targeted exams where dose is matched to clinical indication); or iterative reconstruction. Contrast material: OMNI-PAQUE 350; Contrast volume: 100 ml; Contrast route: INTRAVENOUS (IV); COMPARISON: CT thorax abd/pel CTA 01/09/2019 10:22 AM FINDINGS: Lungs: Emphysematous disease is noted in the lung bases. Liver: There is a lobular, cirrhotic morphology of the liver. No mass lesions identified. Gallbladder and bile ducts: Prior cholecystectomy. Pancreas: Normal. No ductal dilation. Spleen: Prior splenectomy. Adrenal glands: Normal. No mass. Kidneys and ureters: There are multiple punctate nonobstructing renal calculi bilaterally. Stomach and bowel: Prominent gastric varices are present. Esophageal varices are also noted. Appendix: The appendix is not discretely visualized. Intraperitoneal space: Unremarkable. No free air. No significant fluid collection. Arteries: Moderate scattered atherosclerotic calcifications are present. Lymph nodes: Unremarkable. No enlarged lymph nodes. Urinary bladder: Unremarkable as visualized. Reproductive: Unremarkable as visualized. Bones/joints: Mild to moderate multilevel degenerative changes are present in the visualized spine. There is a dextroscoliosis present. Soft tissues: There is a left fat containing inguinal hernia. IMPRESSION: 1. No acute abnormality of the abdomen and pelvis. 2. Cirrhotic morphology of the liver with prominent gastric varices and also esophageal varices noted. Endoscopic assessment should be considered if not previously performed. 3. Prior splenectomy and cholecystectomy. 4. Nonobstructing nephrolithiasis. 5. Left fat containing inguinal hernia. Dictated and Authenticated by: Connie Nunez MD. Ordering:VIRGIL Frias MD
[2021-08-23 18:35] LABS: Bilirubin Negative (Negative); Blood Negative (Negative); Clarity Clear (Clear); Glucose 100 mg/dL (Negative); Ketones 15 mg/dL (Negative); Leukocyte Esterase Trace (Negative); Nitrite Negative (Negative); Specific Gravity 1.025 (1.005-1.025)
[2021-08-23 18:48] LABS: Bacteria Rare HPF (Negative); C & S Indicated? C&S Done As Ordered; Crystals Negative HPF (Negative); Epithelial Cells Many HPF (Negative); Mucus Negative (Negative); RBC 0-2 HPF (0-2)
[2021-08-23] MEDS: Amoxicillin 875/Clav. 125 TAB PO (19:14)
[2021-08-23] MEDS: Sulfameth/Trimeth DS TAB 1 TAB PO (19:14)
[2021-08-23 19:19] VITALS: BP 172/97; PULSE 98; RESP 16; TEMP 38.1; O2SAT 95
--- NOTE | 2021-08-24 09:50 | W.ED.FU ---
Follow Up Plan: Dr. Pablo called to report a discrepancy in the virtual radiology CT report from 08/23/2021. Virtual radiology read the CT as no acute abnormality of the abdomen and pelvis. Dr. Pablo's report notes an 18 x 15 x 17 mm perianal abscess with some surrounding fat streaking but no gas in the soft tissues. Review of ED visit note states that the provider did visualize an abscess on CT and performed an I&D with copious purulent material removed and cultures pending. Patient's discharge instructions listed a diagnosis of Abscess of perineum and he was placed on Bactrim and Augmentin.
== END 2021-08-23 19:23 | disposition home or self-care (01) ==
PROVIDERS: Emergency Provider Emergency Medicine; PCP Internal Medicine
DX: K61.0 Anal abscess (principal); D72.829 Elevated white blood cell count, unspecified
CPT/HCPCS: 10060; 36415; 80053; 87040; 87077; 87635; 96361; 96374; 99284; 99285; 74177; 81003; 81015; 83605; 83735; 85025; 87070; 87086; 87205; J1885; J3490

== ENCOUNTER 2021-12-15 09:18 | Emergency (ER) | payer MEDICARE, MEDICAID, SELFPAY ==
[2021-12-15 09:31] VITALS: BP 184/90; PULSE 67; RESP 18; TEMP 36.8; O2SAT 99
--- NOTE | 2021-12-15 10:11 | DI.US_ITS ---
Exam(s) US HERNIA EXAM: US HERNIA CLINICAL HISTORY: inguinal hernia TECHNIQUE: Ultrasound performed using standard protocol. COMPARISON: US US OR ANESTHESIA from 02/27/[address] ABDOMEN PELVIS W from 08/23/2021 FINDINGS: Ultrasound examination of the left inguinal region was performed to evaluate clinically suspected ing uinal hernia. Ultrasound examination shows an apparent 3.2 cm in diameter left inguinal hernia. The re appears to be a loop of bowel residing in the hernia sac. No free fluid identified. IMPRESSION: DATA REPOSITORY:
--- NOTE | 2021-12-15 11:01 | ED.GENADUL_ITS ---
Discharge Plan Disposition Patient Disposition: HOME Condition: Stable Discharge Details Clinical Impression: Inguinal hernia Primary Care Provider: Burt Nguyen ED Provider: Ijeoma Llanes Home Meds and New Rx's Prescriptions: Continued Spiriva with HandiHaler 18 MCG capsule, w/inhalation device 1 ea Inhalation PRN PRN Label Comments: States he hasn't taken it in 3 months. spironolactone 50 mg Tablet 50 mg PO QAM clindamycin phosphate 1 % lotion TOPICAL Label Comments: APPLY THIN LAYER TOPICALLY TO SORES TWICE DAILY carvedilol 12.5 mg tablet 12.5 mg PO BID Label Comments: Take 1 tablet by mouth twice a day naproxen 250 mg tablet 250 - 500 mg PO BID PRN (Reason: Moderate pain or swelling) Qty: 60 0RF Discharge Instructions Additional Instructions: Take the oxycodone only at night as needed, this medication is addictive You have an appointment with surgery at 9 AM, please see the address listed below This appointment is on December 19 at [address] Shearer, if you cannot make this appointment you must call the office Should you develop fever, chills or inability to reduce your hernia you must be reassessed emergently in the emergency department Referrals: Orion Shearer MD [ [facility] STAFF PHYSICIAN] - 2 days (9 am appt) Burt Nguyen MD [Primary Care Provider] - Discharge Data Discharge Date/Time-TO BE ENTERED AT DEPARTURE: 12/15/21 11:17 Medical Decision Making Spoke with Dr. Matthew, patient have an appointment scheduled on Monday at 9 AM for initial screening Afebrile and nontoxic Hernia noted on US without incarceration, easily reducible in the emergency department, pain with palpation and ambulation Appointment with Dr. Shearer scheduled for Monday by orthopedics at 9 AM, patient made aware Given 4 tablets of oxycodone for home as needed and instructed not to lift Medical Records Medical records reviewed: Yes I reviewed the patient's medical records. HPI General Date/Time Provider Initiated Documentation: 12/15/21 09:33 . HPI Narrative: This 66-year-old male presents with reports of left inguinal hernia that in the past has herniated with lifting weights only, now persistent but reducible at home. Has been having persistent pain over the course of the past week. Denies fever or chills. Able to move bowels. Denies any nausea or vomiting. Related Data Home Medications Medication Instructions Recorded Confirmed tiotropium bromide 18 mcg capsule 1 ea inhalation PRN PRN 01/21/14 12/15/21 with inhalation device (Spiriva with HandiHaler) spironolactone 50 mg tablet 50 mg PO QAM 01/09/19 12/15/21 naproxen 250 mg tablet 250 - 500 mg PO BID PRN Moderate 02/27/20 12/15/21 pain or swelling #60 tabs carvedilol 12.5 mg tablet 12.5 mg PO BID 12/15/21 12/15/21 clindamycin phosphate 1 % lotion applic topical 12/15/21 12/15/21 Previous Rx's Medication Instructions Recorded naproxen 250 mg tablet 250 - 500 mg PO BID PRN Moderate 02/27/20 pain or swelling #60 tabs Allergies Allergy/AdvReac Type Severity Reaction Status Date / Time methadone [Methadone] Allergy Intermediate Rash/Swelli Unverified 12/17/21 09:26 ng/Edema General Stated Complaint: Abd Prob HEATHER: 2 Review of Systems All systems reviewed & are unremarkable except as noted in HPI and below PFSH All Active Problems (Updated 12/15/21 @ 11:05 by LORNA Miller) Opioid overdose (Acute) Inguinal hernia (Acute) No-show for appointment (Acute) Sialoadenitis of submandibular gland (Acute) Sialodocholithiasis (Acute) Medical History Bone cancer COPD (chronic obstructive pulmonary disease) Hepatitis C treated with interferon as a child; states it is now resolved Hypertension Lymphoma Surgical History History of appendectomy History of cholecystectomy History of splenectomy Social History Smoking/Tobacco Use Status: Current every day Tobacco Type: cigarettes Smoking risk assessment performed?: Yes Alcohol Intake: current Alcohol Intake frequency: a few times a week Alcohol type: beer Drug use: Occasionally Substance use type: does not use Details: no longer uses heroin or cocaine (months) Do you feel safe at home: Yes Do you feel safe in your relationship?: Yes Exam Const General: cooperative, comfortable and no acute distress Resp Effort & Inspection: normal respiratory effort Cardio Rate: regular rate Male genitals images: 1. Easily reducible left inguinal hernia, nontender postreduction and no erythema Skin General skin exam: no rashes or lesions noted Neuro General: patient alert Course Vital Signs Vital signs: Vital Signs Temperature 36.8 C 12/15/21 09:31 Pulse 67 12/15/21 09:31 Respiratory Rate 18 12/15/21 09:31 Blood Pressure 184/90 H 12/15/21 09:31 Pulse Oximetry 99 12/15/21 09:31 Temperature 36.8 C 12/15/21 09:31 Temperature Source Temporal Artery Scan 12/15/21 09:31 Pulse 67 12/15/21 09:31 Respiratory Rate 18 12/15/21 09:31 Respiratory Effort 12/15/21 10:37 Blood Pressure 184/90 H 12/15/21 09:31 Pulse Oximetry 99 12/15/21 09:31 Oxygen Delivery Method Room Air 12/15/21 09:31 Oxygen Flow Rate 0 12/15/21 09:31 Pain Level 7 12/15/21 09:31
== END 2021-12-15 11:17 | disposition home or self-care (01) ==
PROVIDERS: Emergency Provider Physician Assistant; PCP Internal Medicine
DX: K40.90 Unilateral inguinal hernia, without obstruction or gangrene, not specified as recurrent (principal); I10 Essential (primary) hypertension; J44.9 Chronic obstructive pulmonary disease, unspecified; F17.210 Nicotine dependence, cigarettes, uncomplicated
CPT/HCPCS: 76857; 99284

== ENCOUNTER → 2021-12-17 09:18 | Outpatient (BNVA) | payer MEDICARE, MEDICAID, SELFPAY | PROVIDERS: PCP Internal Medicine; Referring Provider Internal Medicine; Visit Provider Surgery | DX: K46.9 Unspecified abdominal hernia without obstruction or gangrene (principal) | CPT/HCPCS: 99214 ==

== ENCOUNTER 2022-01-19 01:36 | Outpatient (CLI) | payer MEDICARE, MEDICAID, SELFPAY ==
[2022-01-19 12:11] LABS: Source Nasal/Nares
[2022-01-19 16:53] LABS: COVID-19 PCR Negative (Negative)
== END 2022-01-19 01:37 | disposition home or self-care (01) ==
PROVIDERS: PCP Internal Medicine; Visit Provider Surgery
DX: Z01.818 Encounter for other preprocedural examination (principal); Z20.822 Contact with and (suspected) exposure to COVID-19
CPT/HCPCS: 87635

== ENCOUNTER 2022-01-21 10:25 | Day surgery (SDC) | payer MEDICARE, MEDICAID, SELFPAY ==
[2022-01-21] VITALS (13 sets, daily range): BP systolic 116–163; BP diastolic 67–94; PULSE 51–70; RESP 10–18; TEMP 36.4–37.2; O2SAT 93–100; BMI 21.4
--- NOTE | 2022-01-21 08:25 | W.PM.OP ---
Date of service: 01/21/22 Operative Note Operative Note DATE OF PROCEDURE: 01/21/22 PRE-OP DIAGNOSIS: Left inguinal hernia POST-OP DIAGNOSIS: same Indirect left inguinal hernia PROCEDURE: Left inguinal herniorraphy with mesh SURGEON: Orion Shearer [employer]ODUCTION BORING MACHINE OPERATOR: Arya Dickinson Refer to Anesthesia Record ESTIMATED BLOOD LOSS: 25 COMPLICATIONS: None Patient was transported to: PACU Patient's condition: stable Implants: Large mesh plug and patch Indications: Mehrdad Kearney is a 66-year-old male with a left-sided inguinal hernia that has become larger, and more symptomatic over the past several weeks. Procedure Description: I began by confirming the correct site with the patient. Next, after induction of general anesthesia, I established a large field block with local anesthetic. I also blocked the anterior superior iliac spine. Surgical site was then prepped and draped in the usual fashion. I began by making an oblique incision over the left inguinal region. I dissected down through the skin to the deep fascia. Next, I incised the fascia along the length of the inguinal canal to the external ring. Because of Mr Kearney's challenges with pain, and his recreational abuse of opioid medications, I elected to perform neurolysis of the left ilioinguinal nerve to minimize chances of postoperative pain. Once this was complete, I bluntly dissected the shelving edge of the inguinal ligament down towards the pubic tubercle. Here, I encircled all cord structures with a Heidi drain. Next, I began dissecting the specific cord structures. Great care was taken to spare the vas deferens and the blood supply to the testicle. Next, I isolated the hernia sac from the other inguinal structures. I reduced it back to its normal anatomic position. I then used a large mesh plug to obliterate the defect at the internal ring. I fixed in place with interrupted Prolene stitches. The floor of the inguinal canal was quite lax, and I suspect there may have even been a component of a direct inguinal hernia. Therefore I buttressed the posterior floor of the inguinal canal with a large mesh patch. I started by fixing it to the pubic tubercle. Next, I used Prolene sutures to affix it to the shelving edge of the inguinal ligament and the conjoined tendon. Laterally I tacked it to the transversalis fascia and reconstructed an internal ring without any strain on the cord structures. Once this was complete, I irrigated the surgical field. It appeared hemostatic. I then closed the anterior portion of the fascia to reconstruct the front wall of the inguinal canal. I did this with interrupted Vicryl stitches. Once again, I irrigated the surgical field and inspected for hemostasis. Finally, I approximated the superficial fascia and the deep layers of the skin with absorbable suture. Skin was closed with subcutaneous stitches. Bandages were applied, the patient was awakened and transferred to the recovery unit.
--- NOTE | 2022-01-21 08:27 | PDOC.DSDIS_ITS ---
Discharge Plan Disposition Patient Disposition: HOME Condition: Good Discharge Details Reason For Visit: Left inguinal hernia Attending Provider: Orion Shearer Primary Care Provider: Burt Nguyen Home Meds and New Rx's Prescriptions: New oxycodone 5 mg tablet 5 mg PO Q8H PRN (Reason: pain) Qty: 12 0RF Rx Instructions: take one tablet by mouth as needed for pain if tylenol and ibuprofen are not working Continued Spiriva with HandiHaler 18 MCG capsule, w/inhalation device 1 ea Inhalation PRN PRN Label Comments: States he hasn't taken it in 3 months. spironolactone 50 mg Tablet 50 mg PO QAM clindamycin phosphate 1 % lotion TOPICAL Label Comments: APPLY THIN LAYER TOPICALLY TO SORES TWICE DAILY carvedilol 12.5 mg tablet 12.5 mg PO BID Label Comments: Take 1 tablet by mouth twice a day naproxen 250 mg tablet 250 - 500 mg PO BID PRN (Reason: Moderate pain or swelling) Qty: 60 0RF Discharge Instructions Instructions: Inguinal Hernia Repair (DC) Additional Instructions: 1. Resume all of your medications. 2. Okay to use tylenol and ibuprofen over the counter as needed. 3. Use oxycodone as needed for pain. 4. Leave bandage in place for 48 hours, then remove. 5. Shower with warm soapy water. Pat dry. Use a bandaid if needed to protect your clothing. 6. No soaking or tub baths until I see you in the office. 7. No heavy lifting until I see you in the office. 8.Call the office (or go directly to the emergency room after hours) if you notice any of the following: Develop chills (warm to touch), or if you have a thermometer and your temperature is above 101 Difficulty breathing or difficultly swallowing Persistent vomiting Any bleeding ? exceeding one tablespoon 6. Call your physician if the site where your intravenous was started becomes red, swollen, painful, and warm to touch. Referrals: Orion Shearer MD [ [facility] STAFF PHYSICIAN] - (10-14 days for follow up) Activity:: Activity as Tolerated Remove Dressings/Wound Care:: 48 hours Shower/Bathe:: 24 hours Diet:: As Tolerated Discharge Orders Discharge Orders: Discharge Order (Routine); Ordered 01/21/22 Ordered By: Orion Shearer DS: Diagnosis Discharge Diagnosis (1) S/P inguinal hernia repair: Status: Acute Asessment and Plan: follow up in my office 10-14 days for post-op exam
[2022-01-21] MEDS: Lactated Ringers 1,000 ML 80 ML IV (11:36)
--- NOTE | 2022-01-21 12:07 | ANES.PREOP_ITS ---
General Info Date of Service Date Performed: 01/21/22 Height: 5 ft 10 in Weight: 67.9 kg Body Mass Index (BMI): 21.4 Surgical Procedure: Operation Date: 01/21/22 12:40 Proposed Procedure Side Surgeon p Herniorrhaphy Inguinal w/Mesh Left Orion Shearer MD Meds Allergies and Home Medications Allergies Allergy/AdvReac Type Severity Reaction Status Date / Time methadone [Methadone] Allergy Intermediate Rash/Swelli Unverified 01/21/22 10:50 ng/Edema Home Medication Medication Instructions Recorded tiotropium bromide 18 mcg capsule 1 ea inhalation PRN PRN 01/21/14 with inhalation device (Spiriva with HandiHaler) spironolactone 50 mg tablet 50 mg PO QAM 01/09/19 naproxen 250 mg tablet 250 - 500 mg PO BID PRN Moderate 02/27/20 pain or swelling #60 tabs carvedilol 12.5 mg tablet 12.5 mg PO BID 12/15/21 clindamycin phosphate 1 % lotion applic topical 12/15/21 Current Visit Medications: Current Medications Generic Name Dose Route Start Last Admin Trade Name Freq PRN Reason Stop Dose Admin Acetaminophen 1,000 mg 01/21/22 06:00 Acetaminophen 500 Mg Tab PO 01/21/22 18:00 PREOP RAYMOND Celecoxib 200 mg 01/21/22 06:00 Celecoxib 200 Mg Cap PO 01/21/22 18:00 PREOP RAYMOND Gabapentin 600 mg 01/21/22 06:00 Gabapentin 300 Mg Cap PO 01/21/22 18:00 PREOP RAYMOND Ringer's Solution 1,000 mls @ 80 mls/hr 01/21/22 06:00 01/21/22 11:36 IV 01/21/22 18:00 80 mls/hr [facility] Administration Cefazolin Sodium/Dextrose 2 gm in 50 mls @ 100 mls/hr 01/21/22 11:45 Ancef Duplex IVPB 01/21/22 12:14 NOW ONE IV Miscellaneous Supplies 1 each 01/21/22 06:00 Iv Access IV 02/20/22 05:59 DIRECTED RAYMOND Sodium Chloride 0 ml 01/21/22 06:00 Normal Saline Flush 10 Ml Syr IV 02/20/22 05:59 PRN PRN Sodium Chloride 0 ml 01/21/22 06:00 Normal Saline 10 Ml Vial IJ 02/20/22 05:59 DIRECTED PRN Sterile Water 0 ml 01/21/22 06:00 Water,Injection,Sterile 10 Ml Vial IJ 02/20/22 05:59 DIRECTED PRN PFSH Active Problems Active Problems: Problem Status Onset Code Sialoadenitis of submandibular gland K11.20 Sialodocholithiasis K11.5 No-show for appointment Z53.29 Opioid overdose T40.2X1A Inguinal hernia of left side without obstruction or gangrene K40.90 S/P inguinal hernia repair Z98.890, Z87.19 Medical History Medical History (Updated 01/21/22 @ 10:47 by Ashley Waterman) Bone cancer COPD (chronic obstructive pulmonary disease) Hepatitis C treated with interferon \; states it is now resolved Hypertension Lymphoma Surgical History Surgical History (Updated 01/21/22 @ 10:48 by Ashley Waterman) History of appendectomy History of cholecystectomy History of splenectomy S/P rotator cuff repair Tobacco Smoking/Tobacco Use Status: Current every day Tobacco Type: cigarettes Smoking cigarettes per day: 10 Alcohol Alcohol Intake: current Alcohol intake frequency: a few times a week Alcohol type: beer Substance Use Substance use: Occasionally Substance use type: marijuana Details: no longer uses heroin or cocaine (months) Vital Signs and Lab Results Vital Signs Most Recent Vital Signs in EMR: Most Recent Vital Signs Temp Pulse Resp BP Pulse Ox 37.2 C 70 18 155/85 H 95 01/21/22 10:58 01/21/22 10:58 01/21/22 10:58 01/21/22 10:58 01/21/22 10:58 Lab Results Blood Type / Crossmatch: No Data to Display Complete Blood Count: No Data to Display Complete Metabolic Panel: No Data to Display Liver Function Panel: No Data to Display Coagulation Panel: No Data to Display Cardiac Panel: No Data to Display Arterial Blood Gas: No Data to Display Venous Blood Gas: No Data to Display Pancreas Panel: No Data to Display Thyroid Panel: No Data to Display Infectious Disease: Coronavirus (COVID-19)(PCR) Negative (Negative) 01/19/22 09:19 Coronavirus 2019 Source Nasal/Nares 01/19/22 09:19 Blood Cultures: No Data to Display Toxicology Panel: No Data to Display Anesthesia Assessment and Plan Anesthesia History Personal History: No History of Anesthesia Complications Family History: No Family History of Anesthesia Complications Exercise Tolerance Exercise Tolerance: Metabolic Equivalents>4 Pertinent Negatives Pertinent Negatives: No Symptoms of GERD and No Major Cardiovascular Symptoms or Complaints Cardiac & Pulmonary Exam Cardiac Exam: Normal S1/S2 Heart Sounds Pulmonary Exam: Other (Diminished) Implantable Cardiac Device Does patient have a Pacemaker or an ICD?: No Airway Exam Known Difficult Airway: No Mallampati Class: 2 Mouth Opening: Normal (> 3cm) Thyromental Distance: Greater than 3 cm Facial Hair: Full Luu Neck Range of Motion: Full ROM Neck Circumference: Normal Teeth Condition: Generalized Poor Dentition ASA Classification ASA Score: ASA 2 Emergency Case?: No NPO Status NPO Status: NPO Clears >2 hours, Solids >8 hours Anesthesia Plan Resuscitation Status: Full Code Anesthesia Technique: General Anesthesia Airway Planned: LMA Monitors Used: Standard Monitors Preoperative Comments:: Patient declines TAP block
[2022-01-21] MEDS: Gabapentin 300 MG CAP 600 MG PO (12:21)
[2022-01-21] MEDS: Celecoxib 200 MG CAP PO (12:21)
[2022-01-21] MEDS: Acetaminophen 500 MG TAB 1000 MG PO (12:22)
[2022-01-21] MEDS: ceFAZolin 2 GM/50 ML BAG IVPB (13:32)
[2022-01-21] MEDS: Bupivacaine 0.5% Pres-Free W/EPI 30 ML VIAL (14:25)
--- NOTE | 2022-01-21 15:57 | W.ANESPOSTOP ---
Postoperative Evaluation Date, Time and Location Date Performed: 01/21/22 Time Performed: 15:57 Patient Location: Day Surgery Unit Vital Signs Most Recent Imported Vital Signs: Most Recent Vital Signs Temp Pulse Resp BP Pulse Ox 36.5 C 60 15 135/94 H 96 01/21/22 15:35 01/21/22 15:45 01/21/22 15:45 01/21/22 15:45 01/21/22 15:45 Pain Score Most Recent Pain Score: Most Recent Pain Score Pain Level 4 01/21/22 15:45 Assessment Mental Status: Awake (Alert & Oriented to Patient Baseline) Airway and Respiratory Function: Patent airway with normal (patient baseline) respiratory exam Cardiovascular Function: Hemodynamically Stable Hydration Status: Adequately Hydrated Nausea & Vomiting: No Nausea or Vomiting Pain: Pain is tolerable per patient Peripheral Nerve Block: Patient did not receive a nerve block
[2022-01-21] MEDS: Normal Saline 10 ML VIAL IJ (16:01)
[2022-01-21] MEDS: HYDROmorphone 2 MG/ML SYR IVP (16:01)
== END 2022-01-21 17:22 | disposition home or self-care (01) ==
PROVIDERS: PCP Internal Medicine; Visit Provider Surgery
PROC: (CPT 49505; principal; 2022-01-21 12:30)
DX: K40.90 Unilateral inguinal hernia, without obstruction or gangrene, not specified as recurrent (principal); J44.9 Chronic obstructive pulmonary disease, unspecified; I10 Essential (primary) hypertension
CPT/HCPCS: 49505; C1781; J0690; J1100; J1170; J1885; J2250; J2405; J2704

== ENCOUNTER 2022-01-25 15:05 | Emergency (ER) | payer MEDICARE, MEDICAID, SELFPAY ==
[2022-01-25 15:19] VITALS: BP 154/78; PULSE 57; RESP 16; TEMP 36.7; O2SAT 96
--- NOTE | 2022-01-25 17:57 | NUR.NOTE ---
Nursing Note: Unit busy. Patient told access that he wanted to lie down. We did not have a bed and they relayed that to him. He did not want to wait for a bed.
== END 2022-01-25 15:23 | disposition left before discharge ==
LOC: ER 17:38
PROVIDERS: PCP Internal Medicine
DX: Z53.21 Procedure and treatment not carried out due to patient leaving prior to being seen by health care provider (principal)

== ENCOUNTER → 2022-01-31 08:04 | Outpatient (BNVA) | payer MEDICARE, MEDICAID, SELFPAY | PROVIDERS: PCP Internal Medicine; Referring Provider Internal Medicine; Visit Provider Surgery | DX: Z48.817 Encounter for surgical aftercare following surgery on the skin and subcutaneous tissue (principal) ==

== ENCOUNTER 2022-03-26 15:26 | Outpatient (REF) | payer MEDICARE, MEDICAID, SELFPAY ==
[2022-03-26 17:22] LABS: COVID-19 PCR Negative (Negative); Influenza A PCR Negative (Negative); Influenza B PCR Negative (Negative); RSV PCR Negative (Negative)
[2022-03-26 17:54] LABS: Source Nasopharynx
== END 2022-03-26 15:27 | disposition home or self-care (01) ==
LOC: LBN 15:26
PROVIDERS: PCP Internal Medicine; Visit Provider Physician Assistant Medical
DX: J11.1 Influenza due to unidentified influenza virus with other respiratory manifestations (principal); U07.1 COVID-19
CPT/HCPCS: 87637

== ENCOUNTER 2022-04-28 13:15 | Emergency (ER) | payer MEDICARE, MEDICAID, SELFPAY ==
[2022-04-28 13:22] VITALS: BP 118/72; PULSE 72; RESP 18; TEMP 36.8; O2SAT 98
--- NOTE | 2022-04-28 14:15 | DI.RAD_ITS ---
Exam(s) XR FOOT RT COMPLETE EXAM: XR FOOT RT COMPLETE CLINICAL HISTORY: R 2nd toe ulcer, r/o osteo. TECHNIQUE: 2D digital imaging was performed. Three views. COMPARISON: No exams were available for comparison FINDINGS: BONES: No acute fracture is present. No bony destructive lesion is seen. JOINTS: No dislocation present. SOFT TISSUE: Normal. IMPRESSION: Unremarkable radiographs of the right foot. DATA REPOSITORY: RADIATION DOSE DELIVERED:
--- NOTE | 2022-04-28 14:30 | W.ED.GENAD ---
Discharge Plan Disposition Patient Disposition: Home Condition: Stable Discharge Details Clinical Impression: Toe ulcer, right Primary Care Provider: Burt gNuyen ED Provider: Caren Ford Home Meds and New Rx's Prescriptions: New cephalexin 500 mg capsule 500 mg PO QID 7 Days Qty: 28 0RF Continued Spiriva with HandiHaler 18 MCG capsule, w/inhalation device 1 ea Inhalation PRN PRN Label Comments: States he hasn't taken it in 3 months. spironolactone 50 mg Tablet 50 mg PO QAM carvedilol 12.5 mg tablet 12.5 mg PO BID Label Comments: Take 1 tablet by mouth twice a day naproxen 250 mg tablet 250 - 500 mg PO BID PRN (Reason: Moderate pain or swelling) Qty: 60 0RF Discharge Instructions Instructions: Acute Wound Care (ED) Additional Instructions: You appear to have a pressure ulcer of your toe. You may be developing a mild skin infection around the ulcer. There was no evidence of infection in your bone on your x-ray today. Take the Keflex antibiotic prescription as directed until finished. You have been placed on care management's list to arrange for a follow-up appointment with podiatry for further evaluation of your toe ulcer. Return immediately to the emergency department if you develop any worsening or new concerning symptoms. Referrals: Radha Obando DPM [[facility] STAFF PHYSICIAN] - Discharge Data Discharge Date/Time-TO BE ENTERED AT DEPARTURE: 04/28/22 15:59 Discharge Physician: Caren Ford Medical Decision Making 66-year-old male with a history of hypertension, hepatitis C, and COPD presents for right second toe pain for the past few weeks. Patient has a 1 x 1 cm area of ulceration consistent with a stage II pressure sore located on the medial aspect of the right second toe adjacent from where it makes contact likely secondary to rubbing the right great toe. There is very minimal erythema but no fluctuance or pus drainage. Suspect pressure ulcer on her corn. Will obtain screening labs and right toe x-ray. Labs and imaging reviewed. Normal white blood cell count. CRP elevated to 4.21 but was 8.13 in July 2021. X-ray reviewed and no obvious acute findings. Wound care consult placed. Nurse debrided tissue around wound and placed nonadherent dressing. Will give a dose of keflex now and send with keflex to go and a prescription will be sent electronically to his pharmacy. Patient given podiatry follow-up information. Advised to follow up with the primary care doctor for re-evaluation. Usual and customary return precautions given prior to discharge. Unable to send prescription electronically. 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 Patient was placed on care management list to arrange for a follow-up appointment with the primary care doctor and with podiatry for reevaluation. Medical Records Medical records reviewed: Yes I reviewed the patient's medical records. Imaging Data Radiologic Study: Radiologist's impression: XR FOOT RT COMPLETE CLINICAL HISTORY: ? R 2nd toe ulcer, r/o osteo.? TECHNIQUE:? 2D digital imaging was performed.? Three views. COMPARISON:? No exams were available for comparison FINDINGS: BONES: No acute fracture is present. No bony destructive lesion is seen. JOINTS: No dislocation present. SOFT TISSUE: Normal. IMPRESSION: Unremarkable radiographs of the right foot. Lab Data Lab results reviewed: Yes I reviewed the patient's lab results. Labs: Laboratory Tests Range/Units 04/28/22 04/28/22 14:26 14:26 WBC (4.4-10.8) 10^3/uL 9.04 RBC (4.36-5.78) 10^6/uL 3.58 L Hgb (13.5-17.5) g/dL 11.6 L Hct (40.0-50.0) % 32.3 L MCV (80-95) fL 90 MCH (27.0-33.0) pg 32.4 MCHC (32.0-36.0) % 35.9 RDW (11.8-14.1) % 12.0 Plt Count (130-400) 10^3/uL 207 MPV (8.0-11.0) fL 9.9 Immature Gran % 0.3 Neutrophils % 56.1 Lymphocytes % 24.8 Monocytes % 15.8 Eosinophils % 1.9 Basophils % 1.1 Nucleated RBC % (0.0-0.3) % 0.0 Absolute Neutrophils (1.2-6.7) 10^3/uL 5.07 Absolute Lymphocytes (1.2-3.4) 10^3/uL 2.24 Absolute Monocytes (0.1-0.8) 10^3/uL 1.43 H Absolute Eosinophils (0.0-0.7) 10^3/uL 0.17 Absolute Basophils (0.0-0.2) 10^3/uL 0.10 Sodium (136-145) mmol/L 138 Potassium (3.5-5.1) mmol/L 3.7 Chloride (98-107) mmol/L 104 Carbon Dioxide (21.0-32.0) mmol/L 22.1 Anion Gap (3-11) mmol/L 11.9 H BUN (7-18) mg/dL 48 H Creatinine (0.70-1.30) mg/dL 2.1 H Est GFR (CKD-EPI 2020) (mL/min/1.73m2) 34.08 Glucose (74-106) mg/dL 142 H Calcium (8.5-10.1) mg/dL 8.4 L Total Bilirubin (0.2-1.0) mg/dL 0.5 AST (15-37) U/L 62 H ALT (16-63) U/L 68 H Alkaline Phosphatase (46-116) U/L 155 H C-Reactive Protein (0.0-0.3) mg/dL 4.21 H Total Protein (6.4-8.2) g/dL 6.9 Albumin (3.4-5.0) g/dL 3.1 L HPI General Mode of arrival: ambulatory. Date/Time Provider Initiated Documentation: 04/28/22 13:36. Limitations to Documentation: no limitations. Information obtained by: patient. HPI Narrative: Patient is a 66-year-old male with a history of alcohol abuse, COPD, hepatitis C and cirrhosis presents for concern for right second toe infection. Patient states he has had pain in the right second toe for several weeks. He denies any known injury. He denies any history of diabetes. He denies any known fever or ankle pain. Related Data Home Medications Medication Instructions Recorded Confirmed tiotropium bromide 18 mcg capsule 1 ea inhalation PRN PRN 01/21/14 04/28/22 with inhalation device (Spiriva with HandiHaler) spironolactone 50 mg tablet 50 mg PO QAM 01/09/19 04/28/22 naproxen 250 mg tablet 250 - 500 mg PO BID PRN Moderate 02/27/20 04/28/22 pain or swelling #60 tabs carvedilol 12.5 mg tablet 12.5 mg PO BID 12/15/21 04/28/22 cephalexin 500 mg capsule 500 mg PO QID 7 days #28 caps 04/29/22 Previous Rx's Medication Instructions Recorded naproxen 250 mg tablet 250 - 500 mg PO BID PRN Moderate 02/27/20 pain or swelling #60 tabs cephalexin 500 mg capsule 500 mg PO QID 7 days #28 caps 04/29/22 Allergies Allergy/AdvReac Type Severity Reaction Status Date / Time methadone [Methadone] Allergy Intermediate Rash/Swelli Unverified 04/28/22 13:27 ng/Edema General Stated Complaint: Cellulitis HEATHER: 3 Review of Systems All systems reviewed & are unremarkable except as noted in HPI and below Constitutional Constitutional: Reports as per HPI, Denies chills and Denies fever(s) Eyes Eyes: Denies blurry vision ENT Ears, Nose, Mouth, and Throat: Denies dizziness, Denies sore throat and Denies throat swelling Cardiovascular Cardiovascular: Denies chest pain and Denies dyspnea Respiratory Respiratory: Denies cough and Denies dyspnea Gastrointestinal Gastrointestinal: Denies abdominal pain, Denies diarrhea and Denies vomiting Genitourinary Genitourinary: Denies hematuria and Denies dysuria Musculoskeletal Musculoskeletal: Denies back pain and Denies numbness Comments: R 2nd toe pain Integumentary/Breasts Skin/Breast: Denies lesions and Denies rash Neurologic Neurologic: Denies dizziness, Denies localized weakness and Denies numbness Allergic/Immunologic Allergic/Immunologic: Denies throat swelling PFSH All Active Problems (Updated 04/29/22 @ 07:47 by Caren Ford DO) Toe ulcer, right (Acute) Sialoadenitis of submandibular gland (Acute) Sialodocholithiasis (Acute) No-show for appointment (Acute) Opioid overdose (Acute) Inguinal hernia of left side without obstruction or gangrene (Acute) Medical History (Updated 04/29/22 @ 07:47 by Caren Ford DO) Bone cancer COPD (chronic obstructive pulmonary disease) Hepatitis C treated with interferon \; states it is now resolved Hypertension Lymphoma Surgical History (Updated 01/31/22 @ 09:36 by Orion Shearer MD) History of appendectomy History of cholecystectomy History of splenectomy S/P inguinal hernia repair S/P rotator cuff repair Social History Smoking/Tobacco Use Status: Current every day Tobacco Type: cigarettes Smoking risk assessment performed?: Yes Alcohol Intake: current Alcohol Intake frequency: a few times a week Alcohol type: beer Drug use: Occasionally Substance use type: marijuana Details: no longer uses heroin or cocaine (months) Do you feel safe at home: Yes Do you feel safe in your relationship?: Yes Additional Social history: patient hesitant to answer. Exam Const General: cooperative and no acute distress Orientation: alert, awake and oriented x3 HENMT Head: normal to inspection Mouth: oral mucosae normal Eyes General: appearance normal, both eyes and all related structures Neck Neck: normal visual inspection Resp Effort & Inspection: normal respiratory effort and able to speak in complete sentences Cardio Rate: regular rate Skin General skin exam: no rashes or lesions noted Neuro General: patient alert, patient awake and patient oriented x3 Motor: muscle tone normal throughout Extrem Ankle/foot/toe images: 1. 1 x 1 cm area of skin maceration and breakdown with softening of epidermis located on medial aspect left of DIP of second toe where it is in contact with the lateral aspect of right great toe. There is minimal clear drainage but no pus drainage or bleeding noted. There is no surrounding fluctuance. There is very minimal erythema of the right second toe. Other: Right DP/PT pulses intact. Psych Appearance: grossly normal Affect: normal affect Course Vital Signs Vital signs: Vital Signs Temperature 98.3 F 04/28/22 13:22 Pulse 72 04/28/22 13:22 Respiratory Rate 18 04/28/22 13:22 Blood Pressure 118/72 04/28/22 13:22 Pulse Oximetry 98 04/28/22 13:22 Temperature 98.3 F 04/28/22 13:22 Pulse 72 04/28/22 13:22 Respiratory Rate 18 04/28/22 13:22 Respiratory Effort Non-Labored 04/28/22 13:28 Blood Pressure 118/72 04/28/22 13:22 Blood Pressure Position Sitting 04/28/22 13:22 Pulse Oximetry 98 04/28/22 13:22 Oxygen Delivery Method Room Air 04/28/22 13:22 Oxygen Flow Rate 0 04/28/22 13:22 Pain Level 3 04/28/22 13:22 Comment 04/28/22 13:22 PAWSS Have you Been Recently Intoxicated or Drunk Within the Last 30 days?: No Have you Ever Experienced Previous Episodes of Alcohol Withdrawal?: No Have you ever Experienced Withdrawal Seizures?: No Have you ever Experienced Delirium Tremens(DT)s?: No Have you ever undergone Alcohol Rehabilitation Treatment (i.e, inpt ot outpatient treatment programs)?: No Have you ever Experienced Blackouts?: No Have you ever Combined Alcohol with other Downers within the last 90 days?: No Have you ever Combined Alcohol with any other Substance of Abuse during the last 90 days?: No Positive Blood Alcohol level on Presentation? [PCS.BAL]: No Evidence of Increased Autonomic Activity (i.e. HR>120, tremor, sweating, agitation, nausea)?: No Result: 0
[2022-04-28 14:32] LABS: Abs Immature Grans 0.03 10^3/uL (0.0-0.06); Absolute Eosinophil Count 0.17 10^3/uL (0.0-0.7); Absolute Lymphocyte Count 2.24 10^3/uL (1.2-3.4); Absolute Monocyte Count 1.43 10^3/uL (0.1-0.8); Absolute Neutrophil Count 5.07 10^3/uL (1.2-6.7); Basophils % 1.1; Eosinophils % 1.9; HCT 32.3 % (40.0-50.0); HGB 11.6 g/dL (13.5-17.5); Immature Grans % 0.3; Lymphocytes % 24.8; MCH 32.4 pg (27.0-33.0); MCHC 35.9 % (32.0-36.0); MCV 90 fL (80-95); MPV 9.9 fL (8.0-11.0); Monocytes % 15.8; Neutrophils % 56.1; Platelet Count 207 10^3/uL (130-400); RBC 3.58 10^6/uL (4.36-5.78); RDW-SD 39.7 fL; WBC 9.04 10^3/uL (4.4-10.8)
[2022-04-28 14:48] LABS: ALT 68 U/L (16-63); AST 62 U/L (15-37); Albumin 3.1 g/dL (3.4-5.0); Alkaline Phosphatase 155 U/L (46-116); Anion Gap 11.9 mmol/L (3-11); BUN 48 mg/dL (7-18); Bilirubin, Total 0.5 mg/dL (0.2-1.0); C-Reactive Protein 4.21 mg/dL (0.0-0.3); CO2 22.1 mmol/L (21.0-32.0); CREATININE 2.1 mg/dL (0.70-1.30); Calcium 8.4 mg/dL (8.5-10.1); Chloride 104 mmol/L (98-107); Estimated GFR 34.08 (mL/min/1.73m2); Glucose 142 mg/dL (74-106); Potassium 3.7 mmol/L (3.5-5.1); Sodium 138 mmol/L (136-145); Total Protein 6.9 g/dL (6.4-8.2)
--- NOTE | 2022-04-28 17:46 | NUR.NOTE ---
Nursing Note: Referral faxed to Podiatry, Dr Obando; for corn right second toe; next couple weeks.
== END 2022-04-28 15:59 | disposition home or self-care (01) ==
PROVIDERS: Emergency Provider Physician Assistant; PCP Internal Medicine
DX: L97.519 Non-pressure chronic ulcer of other part of right foot with unspecified severity (principal); R79.82 Elevated C-reactive protein (CRP); I10 Essential (primary) hypertension; J44.9 Chronic obstructive pulmonary disease, unspecified
CPT/HCPCS: 80053; 99283; 73630; 85025; 86140; 99284

== ENCOUNTER 2022-08-01 13:34 | Outpatient (CLI) | payer MEDICARE, MEDICAID, SELFPAY ==
[2022-08-01 13:42] LABS: HGB 13.2 g/dL (13.5-17.5); MCH 32.4 pg (27.0-33.0); MCHC 35.7 % (32.0-36.0); MCV 91 fL (80-95); MPV 10.2 fL (8.0-11.0); Platelet Count 199 10^3/uL (130-400); RBC 4.07 10^6/uL (4.36-5.78); RDW 12.8 % (11.8-14.1); RDW-SD 42.5 fL; WBC 6.16 10^3/uL (4.4-10.8)
[2022-08-01 15:07] LABS: ALT 125 U/L (16-63); AST 105 U/L (15-37); Albumin 3.5 g/dL (3.4-5.0); Alkaline Phosphatase 120 U/L (46-116); Anion Gap 7.5 mmol/L (3-11); BUN 39 mg/dL (7-18); CO2 25.5 mmol/L (21.0-32.0); CREATININE 2.1 mg/dL (0.70-1.30); Calcium 8.6 mg/dL (8.5-10.1); Calculated LDL 67 mg/dL (<100); Chloride 103 mmol/L (98-107); Cholesterol 187 mg/dL (<200); Estimated GFR 33.87 (mL/min/1.73m2); Glucose 116 mg/dL (74-106); HDL Cholesterol 105 mg/dL (40-60); Potassium 4.7 mmol/L (3.5-5.1); Sodium 136 mmol/L (136-145); Total Protein 7.6 g/dL (6.4-8.2); Triglyceride 78 mg/dL (<150)
== END 2022-08-01 13:35 | disposition home or self-care (01) ==
LOC: LBO 13:34
PROVIDERS: PCP Internal Medicine; Visit Provider Family Medicine
DX: I10 Essential (primary) hypertension (principal); K74.60 Unspecified cirrhosis of liver; F17.210 Nicotine dependence, cigarettes, uncomplicated; J44.9 Chronic obstructive pulmonary disease, unspecified
CPT/HCPCS: 36415; 80053; 80061; 85027